=== PATIENT | male | born 1960 | race Caucasian/White ===

== ENCOUNTER → 2017-02-10 | Outpatient (CLI) | payer BC ==
[2017-02-10 08:10] LABS: Basophils % (A) 1 %; CH 31.3; CHCM 35.6; Eosinophils # (A) 0.4 k/uL (0-0.7); Eosinophils % (A) 5 %; HCT 44.8 % (39.0-53.0); HDW 2.58; HGB 15.2 gm/dL (13.0-17.5); Luc # (Auto) 0.12; Luc % (Auto) 2; Lymphocytes # (A) 1.7 k/uL (1.0-4.8); Lymphocytes % (A) 22 %; MCH 29.8 pg (25.0-35.0); MCHC 33.8 g/dL (31.0-37.0); MCV 88.1 fL (80.0-100.0); Mean Platelet Volume 6.7; Monocytes # (A) 0.4 k/uL (0-1.0); Monocytes % (A) 6 %; Neutrophils # (A) 4.9 k/uL (1.3-7.7); Neutrophils % (A) 65 %; RBC 5.09 m/uL (4.30-5.90); RDW 13.6 % (11.5-15.5); WBC 7.6 k/uL (3.8-10.6); WBC (Perox) 7.05
[2017-02-10 11:21] LABS: ALT 64 U/L (21-72); AST 36 U/L (17-59); Alkaline Phosphatase 70 U/L (38-126); Anion Gap 9 mmol/L; Blood Urea Nitrogen 20 mg/dL (9-20); Calcium 10.1 mg/dL (8.4-10.2); Carbon Dioxide 23 mmol/L (22-30); Chloride 110 mmol/L (98-107); Cholesterol 196 mg/dL (<200); Glucose 99 mg/dL (74-99); HDL Cholesterol 65 mg/dL (40-60); Non-African American GFR(MDRD) >60 (>60 ml/min/1.73 sqM); Potassium 5.8 mmol/L (3.5-5.1); Sodium 142 mmol/L (137-145); Total Bilirubin 0.4 mg/dL (0.2-1.3); Total Protein 7.2 g/dL (6.3-8.2)
[2017-02-10 11:48] LABS: Prostate Specific Antigen 0.45 ng/mL (0.00-4.00)
[2017-02-10 13:17] LABS: Hemoglobin A1C 5.5 % (4.2-6.1)
== END | disposition home or self-care (01) ==
LOC: LABWHC1 07:46
PROVIDERS: ATTEND Urology
DX: E78.5 Hyperlipidemia, unspecified (principal); R55 Syncope and collapse; E11.9 Type 2 diabetes mellitus without complications; N52.9 Male erectile dysfunction, unspecified
CPT/HCPCS: 36415; 80053; 80061; 83036; 84153; 84403; 84439; 84443; 85025

== ENCOUNTER → 2017-04-01 | Outpatient (CLI) | payer BC | END | disposition home or self-care (01) | LOC: LABWHC1 06:50 | PROVIDERS: ATTEND Urology | DX: E29.1 Testicular hypofunction (principal) | CPT/HCPCS: 36415; 84403 ==

== ENCOUNTER → 2017-05-10 | Outpatient (CLI) | payer BC | END | disposition home or self-care (01) | LOC: LABWHC1 09:11 | PROVIDERS: ATTEND Internal Medicine | DX: E87.5 Hyperkalemia (principal) | CPT/HCPCS: 36415; 84132 ==

== ENCOUNTER → 2017-08-20 | Outpatient (CLI) | payer BC ==
[2017-08-20 07:51] LABS: Basophils # (A) 0.1 k/uL (0-0.2); Basophils % (A) 1 %; Eosinophils # (A) 0.8 k/uL (0-0.7); Eosinophils % (A) 13 %; HCT 42.5 % (39.0-53.0); HGB 14.2 gm/dL (13.0-17.5); Lymphocytes # (A) 1.6 k/uL (1.0-4.8); Lymphocytes % (A) 26 %; MCH 28.6 pg (25.0-35.0); MCHC 33.3 g/dL (31.0-37.0); MCV 85.8 fL (80.0-100.0); Monocytes # (A) 0.4 k/uL (0-1.0); Monocytes % (A) 7 %; Neutrophils # (A) 3.1 k/uL (1.3-7.7); Neutrophils % (A) 52 %; Platelet Count 224 k/uL (150-450); RBC 4.96 m/uL (4.30-5.90); RDW 12.5 % (11.5-15.5)
[2017-08-20 08:04] LABS: ALT 67 U/L (21-72); AST 45 U/L (17-59); Albumin 4.2 g/dL (3.5-5.0); Alkaline Phosphatase 86 U/L (38-126); Anion Gap 11 mmol/L; Blood Urea Nitrogen 18 mg/dL (9-20); Calcium 10.3 mg/dL (8.4-10.2); Carbon Dioxide 26 mmol/L (22-30); Chloride 106 mmol/L (98-107); Cholesterol 185 mg/dL (<200); Glucose 107 mg/dL (74-99); HDL Cholesterol 62 mg/dL (40-60); LDL Cholesterol,Calculated 101 mg/dL (0-99); Potassium 5.4 mmol/L (3.5-5.1); Sodium 143 mmol/L (137-145); Total Bilirubin 0.3 mg/dL (0.2-1.3); Total Protein 6.9 g/dL (6.3-8.2); Triglycerides 111 mg/dL (<150)
[2017-08-20 11:17] LABS: Hemoglobin A1C 5.4 % (4.0-6.0)
== END | disposition home or self-care (01) ==
LOC: LABWHC1 07:08
PROVIDERS: ATTEND Internal Medicine
DX: E78.5 Hyperlipidemia, unspecified (principal); M19.90 Unspecified osteoarthritis, unspecified site; N40.0 Benign prostatic hyperplasia without lower urinary tract symptoms; K21.9 Gastro-esophageal reflux disease without esophagitis; Z79.899 Other long term (current) drug therapy
CPT/HCPCS: 36415; 80053; 80061; 83036; 85025

== ENCOUNTER 2018-01-23 22:00 | Observation (INO) | payer BC ==
[2018-01-23 22:24] LABS: Basophils % (A) 1 %; Eosinophils # (A) 0.3 k/uL (0-0.7); Eosinophils % (A) 4 %; HGB 13.3 gm/dL (13.0-17.5); Lymphocytes # (A) 1.5 k/uL (1.0-4.8); Lymphocytes % (A) 22 %; MCH 29.2 pg (25.0-35.0); MCHC 33.3 g/dL (31.0-37.0); MCV 87.5 fL (80.0-100.0); Mean Platelet Volume 6.5; Monocytes # (A) 0.4 k/uL (0-1.0); Monocytes % (A) 5 %; Neutrophils # (A) 4.7 k/uL (1.3-7.7); Neutrophils % (A) 67 %; Platelet Count 224 k/uL (150-450); RBC 4.57 m/uL (4.30-5.90); WBC 7.1 k/uL (3.8-10.6)
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
[2018-01-23 22:34] LABS: ALT 48 U/L (21-72); AST 39 U/L (17-59); Albumin 4.3 g/dL (3.5-5.0); Alkaline Phosphatase 50 U/L (38-126); Anion Gap 10 mmol/L; Blood Urea Nitrogen 12 mg/dL (9-20); Calcium 9.3 mg/dL (8.4-10.2); Carbon Dioxide 23 mmol/L (22-30); Chloride 109 mmol/L (98-107); Glucose 94 mg/dL (74-99); Magnesium 1.9 mg/dL (1.6-2.3); Potassium 3.7 mmol/L (3.5-5.1); Sodium 142 mmol/L (137-145); Total Bilirubin 0.5 mg/dL (0.2-1.3); Total Protein 6.9 g/dL (6.3-8.2)
[2018-01-23 22:44] LABS: D-Dimer 0.22 mg/L FEU (<0.60); Partial Thromboplastin Time 22.2 sec (22.0-30.0); Prothrombin Time 10.2 sec (9.0-12.0)
[2018-01-23 22:47] LABS: Creatine Kinase 256 U/L (55-170)
--- NOTE | 2018-01-23 22:48 | XR ---
EXAMINATION TYPE: XR chest 2V DATE OF EXAM: 01/23/2018 COMPARISON: 01/20/2016 HISTORY: Chest pain TECHNIQUE: Frontal and lateral views of the chest are obtained. FINDINGS: There is no heart failure nor confluent pneumonic infiltrate. Costophrenic angles are kota r. There are chest leads. Bony thorax is intact. IMPRESSION: No active cardiopulmonary disease. Normal heart. No change.
[2018-01-23 22:58] LABS: Creatine Kinase MB 2.4 ng/mL (0.0-2.4); Troponin I <0.012 ng/mL (0.000-0.034)
[2018-01-23] MEDS ORDERED: SODIUM CHLORIDE 0.9% 1,000 ML IV ONE (23:20)
[2018-01-23] MEDS ORDERED: ACETAMINOPHEN TAB 325 MG TAB PO PRN (23:58)
[2018-01-23] MEDS ORDERED: NALOXONE 0.4 MG/ML 1 ML VIAL IV PRN (23:58)
[2018-01-23] MEDS ORDERED: IBUPROFEN 400 MG TAB PO PRN (23:58)
[2018-01-24] MEDS ORDERED: NITROGLYCERIN SL TABS 0.4 MG TAB SUBLINGUAL PRN (00:02)
[2018-01-24 01:17] VITALS: BMI 31.5
[2018-01-24 05:13] LABS: Creatine Kinase 205 U/L (55-170)
[2018-01-24 05:26] LABS: Troponin I <0.012 ng/mL (0.000-0.034)
[2018-01-24 10:06] LABS: Creatine Kinase 180 U/L (55-170)
[2018-01-24 10:18] LABS: Creatine Kinase MB 1.9 ng/mL (0.0-2.4); Troponin I <0.012 ng/mL (0.000-0.034)
[2018-01-24] MEDS ORDERED: predniSONE 5 MG TAB PO PRN (11:11)
[2018-01-24] MEDS ORDERED: CELECOXIB 100 MG PO PRN (11:11)
[2018-01-24] MEDS ORDERED: HYOSCYAMINE SULFATE 0.375 MG TAB.ER.12H PO PRN (11:11)
[2018-01-24] MEDS: traMADol 50 MG TAB PO SCH ×2 (12:22→21:36)
[2018-01-24] MEDS: SODIUM CHLORIDE 0.9% 1,000 ML IV SCH (13:38)
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
[2018-01-24 14:15] LABS: Appearance,Urine Clear (Clear); Bilirubin,Urine Negative (Negative); Blood,Urine Small (Negative); Color,Urine Yellow; Glucose,Urine (UA) Negative (Negative); Ketones,Urine Negative (Negative); Leukocyte Esterase,Urine Negative (Negative); Mucus,Urine Rare /hpf; Nitrite,Urine Negative (Negative); Protein,Urine Negative (Negative); RBC,Urine 5 /hpf (0-5); Specific Gravity,Urine 1.013 (1.001-1.035); Urobilinogen,Urine <2.0 mg/dL (<2.0); WBC,Urine 3 /hpf (0-5)
[2018-01-24] MEDS: BALSALAZIDE DISODIUM 750 MG CAPSULE PO SCH ×2 (16:53→21:37)
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
[2018-01-24] MEDS ORDERED: TAMSULOSIN 0.4 MG CAP.ER.24H PO SCH (21:00)
[2018-01-24] MEDS ORDERED: ATORVASTATIN 10 MG TAB PO SCH (21:00)
[2018-01-24] MEDS ORDERED: PANTOPRAZOLE 40 MG TABLET PO SCH (21:00)
[2018-01-24] MEDS: VIT A,C & E-LUTEIN-MINERALS 1 EACH TAB PO SCH (21:36)
[2018-01-25 06:52] LABS: Basophils % (A) 1 %; Eosinophils # (A) 0.3 k/uL (0-0.7); Eosinophils % (A) 8 %; HCT 37.7 % (39.0-53.0); HGB 12.5 gm/dL (13.0-17.5); Lymphocytes # (A) 1.1 k/uL (1.0-4.8); Lymphocytes % (A) 34 %; MCH 29.4 pg (25.0-35.0); MCHC 33.2 g/dL (31.0-37.0); MCV 88.7 fL (80.0-100.0); Mean Platelet Volume 6.8; Monocytes # (A) 0.2 k/uL (0-1.0); Monocytes % (A) 5 %; Neutrophils # (A) 1.6 k/uL (1.3-7.7); Neutrophils % (A) 50 %; Platelet Count 173 k/uL (150-450); RBC 4.25 m/uL (4.30-5.90); RDW 12.9 % (11.5-15.5); WBC 3.1 k/uL (3.8-10.6)
[2018-01-25 07:00] LABS: ALT 39 U/L (21-72); AST 24 U/L (17-59); Albumin 3.3 g/dL (3.5-5.0); Alkaline Phosphatase 48 U/L (38-126); Anion Gap 1 mmol/L; Blood Urea Nitrogen 11 mg/dL (9-20); Calcium 8.8 mg/dL (8.4-10.2); Carbon Dioxide 28 mmol/L (22-30); Chloride 111 mmol/L (98-107); Cholesterol 142 mg/dL (<200); Glucose 99 mg/dL (74-99); HDL Cholesterol 52 mg/dL (40-60); LDL Cholesterol,Calculated 68 mg/dL (0-99); Potassium 4.7 mmol/L (3.5-5.1); Sodium 140 mmol/L (137-145); Total Bilirubin 0.6 mg/dL (0.2-1.3); Total Protein 5.7 g/dL (6.3-8.2); Triglycerides 109 mg/dL (<150)
[2018-01-25] MEDS: SODIUM CHLORIDE 0.9% 1,000 ML IV SCH ×3 (07:44→10:07)
[2018-01-25 08:08] VITALS: RESP 18
[2018-01-25] MEDS ORDERED: MELOXICAM 7.5 MG TAB PO SCH (09:00)
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
[2018-01-25] MEDS: BALSALAZIDE DISODIUM 750 MG CAPSULE PO SCH (10:30)
[2018-01-25] MEDS: ASPIRIN 325 MG TAB PO SCH ×2 (10:30→10:34)
[2018-01-25] MEDS: traMADol 50 MG TAB PO SCH (10:31)
[2018-01-25] MEDS: VIT A,C & E-LUTEIN-MINERALS 1 EACH TAB PO SCH (10:31)
--- NOTE | 2018-01-25 11:09 | ECHOS ---
STRESS ECHOCARDIOGRAM DATE OF SERVICE: 01/25/2018 INDICATIONS: Chest pain. MEDICATIONS: BASELINE HEART RATE: 70 BASELINE BLOOD PRESSURE: 135/82 MAXIMUM HEART RATE: 158 MAXIMUM BLOOD PRESSURE: 158/69 85% MPHR: 138 100% MPHR: 162 METS: 8.5 MAXIMUM STAGE REACHED: II TOTAL EXERCISE TIME: 7 minutes CLINICAL INFORMATION: Patient was exercised for a total period of 7 minutes. Peak heart rate of 158 was achieved. Maximum blood pressure of 158/69 mmHg was noted. Resting EKG shows normal sinus rhythm with normal IN interval and QRS duration and normal ST-T waves. No ST- segment depression suggestive of ischemia is noted. The baseline echocardiographic images reveal normal left ventricular chamber size with normal left ventricular systolic function. In the immediate post exercise period, normal increase in the wall thickness and contractility is noted. FINAL IMPRESSION: This stress echocardiographic study is negative for stress-induced ischemia. EKG portion of the stress test is not suggestive of ischemia. MMODL / IJN: [id number] /
[2018-01-25 11:36] VITALS: BP 119/77; PULSE 74; TEMP 98.2
[2018-01-25] MEDS ORDERED: MULTIVITAMINS, THERA 1 EACH TAB PO SCH (12:00)
[2018-01-25] MEDS ORDERED: VIT A,C & E-LUTEIN-MINERALS 1 EACH TAB PO SCH (12:00)
[2018-01-25] MEDS ORDERED: CALCIUM CARBONATE 500 MG CHEWABLE PO SCH (12:00)
--- NOTE | 2018-01-25 16:48 | DS ---
DISCHARGE SUMMARY DATE OF SERVICE: 01/25/2018. FINAL DIAGNOSES: 1. Lightheaded and syncope possibly orthostatic hypotension or vasovagal syncope. 2. Myocardial infarction ruled out with negative stress echo. 3. Increased creatine kinase. 4. History of gastroesophageal reflux disease. 5. Hyperlipidemia. 6. History of degenerative joint disease. 7. History of Crohn's disease. 8. History of nicotine dependence. 9. Family history of coronary artery disease. DISCHARGE DISPOSITION: The patient is being discharged in stable condition with guarded prognosis. HISTORY OF PRESENT ILLNESS: This 57-year-old gentleman with a past medical history of multiple medical problems was admitted with lightheadedness, syncope. The possibility of orthostatic hypotension and vasovagal syncope was considered. Cardiology saw the patient. Myocardial infarction ruled out. Dr. Ledesma saw the patient. The patient had a stress echo which is normal and recommended the patient to check blood pressure twice daily and bring the log to Dr. Ledesma's office for evaluation. Otherwise, the patient had normal cholesterol levels. PHYSICAL EXAMINATION: On exam, vitals are stable. CARDIOVASCULAR: S1, S2. ABDOMEN: Soft. NERVOUS SYSTEM: No focal deficits. White count is 3.1, hemoglobin 12.5, recommend close outpatient follow up with Dr. Ledesma. I also recommend the patient follow up with Cardiology in case the symptoms recur. The patient might need long-term loop recording monitoring to rule out cardiac arrhythmia. DISCHARGE ADVICE AND MEDICATIONS: 1. Diet is cardiac. 2. Activity limited until followup. 3. Follow up with Dr. Ledesma in 1-2 days. 4. Follow with Cardiology as recommended. MEDICATION: 1. Calcium 1200 mg daily. 2. Celebrex 200 mg daily. 3. Asacol 800 mg t.i.d. 4. Multivitamins 1 p.o. daily. 5. Prilosec 20 mg q.h.s. 6. Zocor 20 mg q.h.s. 7. Flomax 0.4 q.h.s. 8. Ultram 50 mg b.i.d. 9. Vitamin C, zinc 1 p.o. b.i.d. 10.Prednisone as before. MMODL / IJN: [id number] /
--- NOTE | 2018-01-31 16:19 | ECHOF ---
Referral Reason:Chest Pain MEASUREMENTS -------- HEIGHT: 177.8 cm WEIGHT: 93.9 kg BP: 132/82 RVIDd: 3.0 cm (< 3.3) IVSd: 1.2 cm (0.6 - 1.1) LVIDd: 4.2 cm (3.9 - 5.3) LVPWd: 1.2 cm (0.6 - 1.1) IVSs: 1.5 cm LVIDs: 3.3 cm LVPWs: 1.4 cm LAESV Index (A-L): 35.06 ml/m Ao Diam: 3.9 cm (2.0 - 3.7) AV Cusp: 2.2 cm (1.5 - 2.6) LA Diam: 3.7 cm (2.7 - 3.8) MV E Akhil: 0.81 m/s MV DecT: 223 ms MV A Akhil: 0.61 m/s MV E/A Ratio: 1.33 RAP: 5.00 mmHg RVSP: 26.95 mmHg FINDINGS -------- Sinus rhythm. This was a technically good study. The left ventricular size is normal. Left ventricular wall thickness is normal. Overall left vent ricular systolic function is normal with, an EF between 55 - 60 %. The right ventricle is normal in size and function. Normal LA size by volume 22+/-6 ml/m2. The right atrium is normal in size. Aortic valve is trileaflet and is mildly thickened. There is no evidence of aortic regurgitation. There is no evidence of aortic stenosis. The mitral valve leaflets are mildly thickened. There is trace to mild mitral regurgitation. Mild tricuspid regurgitation present. Right ventricular systolic pressure is normal at < 35 mmHg. There is no evidence of pulmonary hypertension. The pulmonic valve was not well visualized. The aortic root size is normal. Normal inferior vena cava with normal inspiratory collapse consistent with estimated right atrial pre ssure of 5 mmHg. There is no pericardial effusion. CONCLUSIONS -------- 1. Sinus rhythm. 2. This was a technically good study. 3. The left ventricular size is normal. 4. Left ventricular wall thickness is normal. 5. Overall left ventricular systolic function is normal with, an EF between 55 - 60 %. 6. Normal LA size by volume 22+/-6 ml/m2. 7. Aortic valve is trileaflet and is mildly thickened. 8. The mitral valve leaflets are mildly thickened. 9. There is trace to mild mitral regurgitation. 10. Mild tricuspid regurgitation present. 11. Right ventricular systolic pressure is normal at < 35 mmHg. 12. There is no evidence of pulmonary hypertension. 13. The pulmonic valve was not well visualized. 14. The aortic root size is normal. 15. There is no pericardial effusion. HEALTH AND SAFETY SPECIALIST: Nitin Mcconnell RDCS
== END 2018-01-25 15:00 | disposition home or self-care (01) ==
LOC: EC 22:00 → 3OBS 01-24 00:03
PROVIDERS: ADMIT Hospitalist; ATTEND Hospitalist
DX: R55 Syncope and collapse (principal); I20.8 Other forms of angina pectoris; E78.00 Pure hypercholesterolemia, unspecified; G89.29 Other chronic pain; M54.9 Dorsalgia, unspecified; E78.5 Hyperlipidemia, unspecified; K50.90 Crohn's disease, unspecified, without complications; I10 Essential (primary) hypertension; K21.9 Gastro-esophageal reflux disease without esophagitis; F17.200 Nicotine dependence, unspecified, uncomplicated; M19.90 Unspecified osteoarthritis, unspecified site; Z80.42 Family history of malignant neoplasm of prostate; Z82.49 Family history of ischemic heart disease and other diseases of the circulatory system
CPT/HCPCS: 96360; 96361; 99285; 36415; 93005; 93306; 93351; 85379; 80061; 80053 ×2; 82550 ×2; 82553 ×2; 83735; 84484 ×2; 85025 ×2; 85610; 85730; 81001; 71046; G0378 ×2

== ENCOUNTER → 2018-02-14 | Outpatient (CLI) | payer BC ==
[2018-02-14 11:25] LABS: Basophils % (A) 1 %; Eosinophils # (A) 0.3 k/uL (0-0.7); Eosinophils % (A) 5 %; HCT 40.1 % (39.0-53.0); HGB 13.6 gm/dL (13.0-17.5); Lymphocytes # (A) 1.3 k/uL (1.0-4.8); Lymphocytes % (A) 28 %; MCV 88.1 fL (80.0-100.0); Mean Platelet Volume 6.7; Monocytes # (A) 0.3 k/uL (0-1.0); Monocytes % (A) 6 %; Neutrophils # (A) 2.8 k/uL (1.3-7.7); Neutrophils % (A) 59 %; Platelet Count 232 k/uL (150-450); RBC 4.55 m/uL (4.30-5.90); RDW 12.8 % (11.5-15.5); WBC 4.8 k/uL (3.8-10.6)
[2018-02-14 11:57] LABS: Anion Gap 6 mmol/L; Blood Urea Nitrogen 11 mg/dL (9-20); Calcium 9.4 mg/dL (8.4-10.2); Carbon Dioxide 26 mmol/L (22-30); Chloride 108 mmol/L (98-107); Glucose 97 mg/dL (74-99); Potassium 4.2 mmol/L (3.5-5.1); Sodium 140 mmol/L (137-145)
== END | disposition home or self-care (01) ==
LOC: LABWHC1 10:25
PROVIDERS: ATTEND Hospitalist
DX: D72.819 Decreased white blood cell count, unspecified (principal)
CPT/HCPCS: 36415; 80048; 85025

== ENCOUNTER → 2019-03-08 | Outpatient (CLI) | payer BC ==
[2019-03-08 09:21] LABS: Basophils % (A) 1 %; Eosinophils # (A) 0.4 k/uL (0-0.7); Eosinophils % (A) 5 %; HCT 43.8 % (39.0-53.0); HGB 14.8 gm/dL (13.0-17.5); Lymphocytes # (A) 1.3 k/uL (1.0-4.8); Lymphocytes % (A) 17 %; MCH 30.1 pg (25.0-35.0); MCHC 33.9 g/dL (31.0-37.0); MCV 88.9 fL (80.0-100.0); Mean Platelet Volume 5.7; Monocytes # (A) 0.4 k/uL (0-1.0); Monocytes % (A) 5 %; Neutrophils # (A) 5.6 k/uL (1.3-7.7); Neutrophils % (A) 71 %; Platelet Count 258 k/uL (150-450); RBC 4.93 m/uL (4.30-5.90); RDW 12.3 % (11.5-15.5)
[2019-03-08 16:13] LABS: Albumin 4.8 g/dL (3.80-4.90); Albumin/Globulin Ratio 2.29 (1.60-3.17); Anion Gap 5.8 mmol/L (4.00-12.00); BUN/Creat Ratio 17.78 Ratio (12.00-20.00); Calcium 10.4 mg/dL (8.7-10.3); Carbon Dioxide 30.2 mmol/L (21.6-31.8); Chol/HDL Ratio 3.32; Globulin 2.1 g/dL (1.6-3.3); LDL Cholesterol,Calculated 119.6 mg/dL (0.0-131.0); Potassium 5.1 mmol/L (3.5-5.5); Total Bilirubin 0.6 mg/dL (0.3-1.2); Total Protein 6.9 g/dL (6.2-8.2); VLDL Calculation 33.4 mg/dL (5.00-40.00)
[2019-03-08 16:21] LABS: T4, Free (Free Thyroxine) 1.2 ng/dL (0.80-1.80)
== END | disposition home or self-care (01) ==
LOC: LABWHC1 08:42
PROVIDERS: ATTEND Internal Medicine
DX: Z00.00 Encounter for general adult medical examination without abnormal findings (principal)
CPT/HCPCS: 36415; 80053; 80061; 84439; 84443; 85025

== ENCOUNTER → 2019-05-11 | Outpatient (CLI) | payer BC ==
--- NOTE | 2019-05-11 10:33 | MR ---
EXAMINATION TYPE: MR knee LT wo con DATE OF EXAM: 05/11/2019 COMPARISON: Plain film dated 04/28/2019 HISTORY: Lt knee pain/swelling x 6 mos, no trauma TECHNIQUE: Multiplanar, multisequence imaging of the left knee is performed without IV contrast. FINDINGS: MEDIAL MENISCUS: Posterior horn of the medial meniscus shows stellate abnormal signal extends the art icular surface, the posterior horn is attenuated, tear extends into the body. There are T2 bright hyp erintensities with septation noted immediately adjacent to the posterior horn of the medial meniscus with a small ossific fragment also noted as on plain brown measuring 1 cm, findings likely represent meniscal cyst. Posterior root anchor is attenuated. LATERAL MENISCUS: Anterior and posterior horns are intact without tear. CRUCIATE LIGAMENTS: Fibers of the anterior cruciate ligament are intact, there is increased signal as sociated with the ligament possibly due to strain or partial tear, posterior cruciate ligament is int act COLLATERAL LIGAMENTS: The medial collateral ligament and lateral collateral ligament complex are inta ct and unremarkable. EXTENSOR MECHANISM: Visualized quadriceps and patellar tendons are intact. EFFUSION: Suprapatellar joint effusion is present POPLITEAL CYST: No popliteal/mishra cyst. TRICOMPARTMENT SPACES: Joint space loss present in the medial compartment CARTILAGE: Grade 3 to grade IV chondromalacia in the medial compartment BONE MARROW SIGNAL: There are lobular T2 bright foci within the proximal tibia at the intercondylar n otch region possibly representing ganglion cysts. Some reactive marrow signal changes are suspected i n the proximal tibia OTHER: Subcutaneous edema is present. IMPRESSION: Complex tear of the posterior horn the medial meniscus may be degenerative, there are osteoarthritic changes. Joint effusion. Additional findings above.
== END | disposition home or self-care (01) ==
LOC: RADMRIMAIN 08:40
PROVIDERS: ATTEND Orthopaedic Surgery
DX: S83.232A Complex tear of medial meniscus, current injury, left knee, initial encounter (principal); M94.262 Chondromalacia, left knee; M25.862 Other specified joint disorders, left knee

== ENCOUNTER → 2019-06-23 | Outpatient (CLI) | payer BC ==
[2019-06-23 10:07] LABS: Basophils # (A) 0.1 k/uL (0-0.2); Basophils % (A) 1 %; Eosinophils # (A) 0.4 k/uL (0-0.7); Eosinophils % (A) 7 %; HCT 42.6 % (39.0-53.0); Lymphocytes # (A) 1.5 k/uL (1.0-4.8); Lymphocytes % (A) 27 %; MCH 29.4 pg (25.0-35.0); MCHC 32.8 g/dL (31.0-37.0); MCV 89.6 fL (80.0-100.0); Mean Platelet Volume 7.1; Monocytes # (A) 0.4 k/uL (0-1.0); Monocytes % (A) 6 %; Neutrophils # (A) 3.2 k/uL (1.3-7.7); Neutrophils % (A) 56 %; Platelet Count 218 k/uL (150-450); RBC 4.75 m/uL (4.30-5.90); RDW 12.3 % (11.5-15.5); WBC 5.7 k/uL (3.8-10.6)
[2019-06-23 10:09] LABS: Potassium 5.3 mmol/L (3.5-5.1)
== END | disposition home or self-care (01) ==
LOC: LABPAT 09:08
PROVIDERS: ATTEND Orthopaedic Surgery
DX: Z01.818 Encounter for other preprocedural examination (principal); Z01.812 Encounter for preprocedural laboratory examination; M23.92 Unspecified internal derangement of left knee
CPT/HCPCS: 36415; 80051; 85025; 93005

== ENCOUNTER 2019-07-06 07:34 | Day surgery (SDC) | payer BC ==
[2019-07-04 11:03] VITALS: BMI 32.5
--- NOTE | 2019-07-05 14:09 | HP ---
HISTORY AND PHYSICAL DATE OF SURGERY: 07/06/2019. Roc Bird is a 59-year-old gentleman seen with progressive left knee pain. We discussed options for treatment. He elected to proceed with arthroscopy. Consent regarding the procedure was obtained. PAST MEDICAL HISTORY: Hypertension, hyperlipidemia, gastroesophageal reflux disease. PAST SURGICAL HISTORY: Appendectomy and vasectomy. MEDICATIONS: Flomax, omeprazole, simvastatin, Celebrex. ALLERGIES: None. SOCIAL HISTORY: He smokes occasional cigars. PHYSICAL EVALUATION OF THE LEFT KNEE: His range of motion is -3/4-120. Moderate effusion. Tenderness medial joint line. Positive medial Nava's. Ligaments stable. Hip rotation without pain. Distal neurovascular exam is intact. RADIOGRAPHS: Radiographs of the left knee revealed moderate medial compartment osteoarthritis. MRI of the left knee revealed medial meniscal tear, osteoarthritis and joint effusion. IMPRESSION: 1. Internal derangement, left knee with medial meniscal tear. 2. Left knee osteoarthritis. 3. Hypertension. 4. Hyperlipidemia. PLAN: Left knee arthroscopy with partial meniscectomy, partial synovectomy and debridement. MMODL / IJN: [id number] /
[~2019-07-06 07:34] MED LIST: DEXAMETHASONE SOD PHOSPHATE 10 MG/ML 1 ML VIAL IV ONE; LACTATED RINGERS 1,000 ML IV SCH; LIDOCAINE 1% 20 ML VIAL (10MG/ML) FOR IV START INTRADERMA PRN; MIDAZOLAM 2 MG/2 ML VIAL IV PRN; ONDANSETRON 4 MG/2 ML VIAL IVP ONE; fentaNYL (PF) 50 MCG/ML 2 ML AMP IV PRN
[2019-07-06 08:12] VITALS: TEMP 98
[2019-07-06] MEDS ORDERED: PROPOFOL 10 MG/ML 20 ML VIAL IV ONE (09:34)
[2019-07-06] MEDS ORDERED: fentaNYL (PF) 50 MCG/ML 2 ML AMP ONE (09:34)
[2019-07-06] MEDS ORDERED: LIDOCAINE 1% INJ 10MG/ML (20 ML MDV) ONE (09:34)
[2019-07-06] MEDS ORDERED: MIDAZOLAM 2 MG/2 ML VIAL ONE (09:34)
[2019-07-06] MEDS ORDERED: BUPIVACAINE (PF) 0.25% 30 ML VIAL SQ ONE (09:41)
--- NOTE | 2019-07-06 10:27 | P.OP ---
Date of Procedure: 07/06/19 Preoperative Diagnosis: Internal derangement left knee Postoperative Diagnosis: 1. Tear medial meniscus left knee 2. 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 Grade 3/4 chondromalacia medial tibial plateau left knee 4. Reactive synovitis medial, lateral and suprapatellar compartments left knee Procedure(s) Performed: 1. Arthroscopic partial medial meniscectomy left knee 2. Arthroscopic chondroplasty medial femoral condyle left knee 3. Arthroscopic microfracture medial tibial plateau left knee 4. Arthroscopic partial synovectomy medial, lateral and suprapatellar compartments left knee Anesthesia: TRAVONA, local Surgeon: José Luis Saucedo Estimated Blood Loss (ml): 10 Pathology: none sent Condition: stable Disposition: PACU Indications for Procedure: 59-year-old patient seen with progressive left knee pain. After treatment options were discussed, he elected to proceed with arthroscopy. Operative Findings: see description of procedure Description of Procedure: Patient was taken to the operative suite. Patient underwent a general anesthetic by the department of anesthesia. Patient was given preoperative antibiotics. The left lower extremity was placed in a well-padded arthroscopic leg lcaros. The left leg was prepped and draped in the normal sterile orthopedic fashion. A lateral parapatellar and suprapatellar incision was made. Trochars were inserted. Arthroscopy was initiated. Suprapatellar pouch revealed diffuse thick reactive synovitis. The patellofemoral joint appeared to articulate congruently. There was grade 1/2 chondromalacia of the patellofemoral joint, no osteochondral tears were present.. The scope was guided into the medial gutter. No loose bodies or plica were identified. The scope was then guided into the medial compartment. A medial parapatellar incision was made. Trocar inserted followed by probe. There was a complex tear involving the midbody and posterior horn medial meniscus. There were grade 3 chondral moist changes the medial femoral condyle with some osteochondral flap tears present. There was grade 3/4 chondromalacia of the tibial plateau as well as an area medially of exposed bone measuring 1 cm diameter. There was thick reactive synovitis anteriorly. I performed a partial medial meniscectomy. I performed a chondroplasty of the medial femoral condyle. I performed a partial synovectomy decompressing the reactive synovitis. I performed a microfracture to that exposed bone medial tibial plateau. I utilized a microfracture awl penetrated the bone with resultant bleeding at the microfracture site. The residual meniscus was stable. The residual osteochondral surfaces remain stable. He was good decompression with synovitis. Scope and probe were then guided into the intercondylar notch. Cruciates were identified, probed and found to be stable. The scope and probe were then guided into lateral compartment. Lateral meniscus was probed and found to be stable. There was some grade 1 chondromalacia changes lateral compartment. There was thick reactive synovitis anteriorly. A motorize shaver was introduced and partial synovectomy was performed. There was good decompression with synovitis. The scope was in guided back into the suprapatellar compartment. I introduced a motorized shaver into the super patellar compartment. I debrided some piecemeal fragments of meniscus I encountered. I performed a partial synovectomy decompressing reactive synovitis. Shaver was removed. I took one more look on the entire knee, no residual debris. Instruments were now removed from the joint. The joint was infiltrated with .25% Marcaine. Steri-Strips were applied to the portal sites. Sterile dressings were applied. The patient was placed into a NATACHA hose. No tourniquet was utilized. The patient was awakened, transferred to a bed and taken to recovery stable satisfactory condition.
[2019-07-06] MEDS: HYDROmorphone 0.5 MG/0.5 ML SYRINGE IVP PRN ×2 (10:30→10:50)
[2019-07-06 11:19] VITALS: RESP 16
[2019-07-06] MEDS ORDERED: HYDROcodone/APAP 7.5-325MG 1 EACH TAB PO ONE (11:57)
[2019-07-06 12:40] VITALS: BP 124/74; PULSE 77
== END 2019-07-06 12:40 | disposition home or self-care (01) ==
LOC: OR 07:34
PROVIDERS: ATTEND Orthopaedic Surgery
DX: S83.282A Other tear of lateral meniscus, current injury, left knee, initial encounter (principal); X58.XXXA Exposure to other specified factors, initial encounter; M94.262 Chondromalacia, left knee; M65.862 Other synovitis and tenosynovitis, left lower leg; I10 Essential (primary) hypertension; E78.5 Hyperlipidemia, unspecified; K21.9 Gastro-esophageal reflux disease without esophagitis; Z79.1 Long term (current) use of non-steroidal anti-inflammatories (NSAID); Z79.899 Other long term (current) drug therapy; F17.290 Nicotine dependence, other tobacco product, uncomplicated; M17.12 Unilateral primary osteoarthritis, left knee; R55 Syncope and collapse; K51.90 Ulcerative colitis, unspecified, without complications; K50.90 Crohn's disease, unspecified, without complications; Z79.891 Long term (current) use of opiate analgesic; Z79.52 Long term (current) use of systemic steroids
CPT/HCPCS: 84132; 29881; 29879; 29876; J2250; J1100; J0690; J2405; J2001; J3010; J2704; J1170

== ENCOUNTER 2019-12-01 10:26 | Observation (INO) | payer BC ==
[2019-12-01] MEDS ORDERED: ASPIRIN 81 MG PO STA (10:42)
[2019-12-01] MEDS ORDERED: NITROGLYCERIN SL TABS 0.4 MG TAB SUBLINGUAL STA (10:42)
[2019-12-01] MEDS ORDERED: SODIUM CHLORIDE 0.9% 1,000 ML IV STA (10:42)
[2019-12-01] MEDS ORDERED: SODIUM CHLORIDE 0.9% 1,000 ML IV ONE (10:43)
--- NOTE | 2019-12-01 10:56 | ED ---
Chest Pain HPI - General Chief Complaint: Chest Pain Stated Complaint: chest pain Time Seen by Provider: 12/01/19 10:32 Source: patient, RN notes reviewed, old records reviewed Mode of arrival: wheelchair Limitations: no limitations - History of Present Illness Initial Comments: 5-year-old male with history of hypertension hyperlipidemia presents emergency department today with onset of chest pain starting last night. He reports it persisted throughout the night and now reports a 1 out of 10 dull achy discomfort in the chest. Denies any previous cardiac history. He does report he had a stress test he thinks about 2 years ago. His economic forecaster is Dr. Cantu. Patient reports that he has had some chest pain with exertion while mowing the lawn over the past couple of weeks. He reports he's been under stress with caring for his own father and has been diminishing his symptoms. He reports it seemed to be worse yesterday caring through the evening. He denies any significant nausea or GERD-like symptoms with this. - Related Data Home Medications Medication Instructions Recorded Confirmed Mesalamine [Asacol Hd] 800 mg PO BID 01/15/14 12/01/19 Omeprazole [PriLOSEC] 20 mg PO BID 01/15/14 12/01/19 Tamsulosin HCl [Flomax] 0.4 mg PO HS 01/15/14 12/01/19 Multivitamins, Thera [Multivitamin 1 tab PO DAILY 02/05/16 12/01/19 (formulary)] Calcium Carbonate [Calcium] 600 mg PO DAILY 01/23/18 12/01/19 Celecoxib [CeleBREX] 200 mg PO DAILY 01/23/18 12/01/19 traMADol HCL [Ultram] 50 mg PO BID 01/23/18 12/01/19 Vit C/E/Zn/Coppr/Lutein/Zeaxan 1 cap PO BID 01/24/18 12/01/19 [Preservision Areds 2 Softgel] Losartan [Cozaar] 25 mg PO DAILY 07/04/19 12/01/19 Hyoscyamine Sulfate [Levbid] 0.375 mg PO BID PRN 12/01/19 12/01/19 Hyoscyamine Sulfate [Levbid] 0.375 mg PO HS 12/01/19 12/01/19 Simvastatin [Zocor] 40 mg PO HS 12/01/19 12/01/19 Tamsulosin [Flomax] 0.4 mg PO HS 12/01/19 12/01/19 Testosterone [Androgel 1.62% Gel 4 pump TOPICAL DAILY 12/01/19 12/01/19 Pump] Allergies Allergy/AdvReac Type Severity Reaction Status Date / Time No Known Allergies Allergy Verified 12/01/19 11:35 Review of Systems ROS Statement: Those systems with pertinent positive or pertinent negative responses have been documented in the HPI. ROS Other: All systems not noted in ROS Statement are negative. EKG Findings - EKG Comments: EKG Findings:: EKG performed at 10:45 AM shows normal sinus rhythm nonspecific ST abnormality. Abnormal EKG. Ventricular rate of 81 bpm. Verbal 148 ms. QRS duration is 90 ms. QT QTc is 360/418 ms. Past Medical History Past Medical History: GERD/Reflux, Hyperlipidemia, Osteoarthritis (OA) Additional Past Medical History / Comment(s): Crohn's disease, seasonal allergies History of Any Multi-Drug Resistant Organisms: None Reported Past Surgical History: Orthopedic Surgery Additional Past Surgical History / Comment(s): fatty tumor removed from left chest, colonoscopy, right plantar fascitis surg., right knee arthroscopy (01/2016), right rotator cuff. Past Anesthesia/Blood Transfusion Reactions: No Reported Reaction Past Psychological History: No Psychological Hx Reported Smoking Status: Current some day smoker Past Alcohol Use History: Occasional Past Drug Use History: None Reported - Past Family History Father Family Medical History: Cancer Mother Family Medical History: Memory Impairment Additional Family Medical History / Comment(s): alzheimers General Exam - General Exam Comments Initial Comments: 5-year-old male. Alert and oriented 3. No significant distress. Limitations: no limitations General appearance: alert, in no apparent distress Head exam: Present: atraumatic, normocephalic, normal inspection Eye exam: Present: normal appearance, PERRL, EOMI. Absent: scleral icterus, conjunctival injection, periorbital swelling ENT exam: Present: normal exam, mucous membranes moist Neck exam: Present: normal inspection. Absent: tenderness, meningismus, lymphadenopathy Respiratory exam: Present: normal lung sounds bilaterally. Absent: respiratory distress, wheezes, rales, rhonchi, stridor Cardiovascular Exam: Present: regular rate, normal rhythm, normal heart sounds. Absent: systolic murmur, diastolic murmur, rubs, gallop, clicks GI/Abdominal exam: Present: soft, normal bowel sounds. Absent: distended, tenderness, guarding, rebound, rigid Extremities exam: Present: normal inspection, full ROM, normal capillary refill. Absent: tenderness, pedal edema, joint swelling, calf tenderness Back exam: Present: normal inspection Neurological exam: Present: alert, oriented X3, CN II-XII intact Psychiatric exam: Present: normal affect, normal mood Skin exam: Present: warm, dry, intact, normal color. 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 He also complained has had some episodes of chest discomfort with exertion the past few weeks. At this time patient's EKG was reviewed and negative for acute process. Troponin is negative. Denies any cough or significant shortness of breath. I discussed with concern for risk factors of hypertension and family history and hyperlipidemia to admit the Pat ient for further testing at this time. The case with Dr. Washington discussed the case with the [facility] hospitalist with consult to cardiology. Disposition Clinical Impression: Anginal equivalent, Chest pain Disposition: ADMITTED IP TO THIS [facility] Condition: Stable Is patient prescribed a controlled substance at d/c from ED?: No Referrals: Vasile Ledesma MD [Primary Care Provider] - 1-2 days Time of Disposition: 13:18
[2019-12-01 11:04] LABS: Basophils # (A) 0.1 k/uL (0-0.2); Basophils % (A) 1 %; Eosinophils # (A) 0.3 k/uL (0-0.7); Eosinophils % (A) 5 %; HCT 42.4 % (39.0-53.0); HGB 14.3 gm/dL (13.0-17.5); Lymphocytes # (A) 1.3 k/uL (1.0-4.8); Lymphocytes % (A) 19 %; MCH 29.3 pg (25.0-35.0); MCHC 33.6 g/dL (31.0-37.0); MCV 87.1 fL (80.0-100.0); Mean Platelet Volume 6.9; Monocytes # (A) 0.3 k/uL (0-1.0); Monocytes % (A) 5 %; Neutrophils # (A) 4.4 k/uL (1.3-7.7); Neutrophils % (A) 69 %; Platelet Count 226 k/uL (150-450); RBC 4.87 m/uL (4.30-5.90); RDW 12.5 % (11.5-15.5); WBC 6.4 k/uL (3.8-10.6)
[2019-12-01 11:13] LABS: INR 0.9 (<1.2); Partial Thromboplastin Time 23.8 sec (22.0-30.0); Prothrombin Time 9.7 sec (9.0-12.0)
[2019-12-01 11:20] LABS: ALT 59 U/L (4-49); AST 39 U/L (17-59); African American GFR (CKD) >90 (>60 ml/min/1.73 sqM); Albumin 4.6 g/dL (3.5-5.0); Alkaline Phosphatase 87 U/L (38-126); Anion Gap 8 mmol/L; Blood Urea Nitrogen 11 mg/dL (9-20); Calcium 9.9 mg/dL (8.4-10.2); Carbon Dioxide 25 mmol/L (22-30); Chloride 105 mmol/L (98-107); Glucose 112 mg/dL (74-99); Magnesium 1.7 mg/dL (1.6-2.3); Non-African American GFR(CKD) >90 (>60 ml/min/1.73 sqM); Potassium 4.2 mmol/L (3.5-5.1); Sodium 138 mmol/L (137-145); Total Bilirubin 0.7 mg/dL (0.2-1.3); Total Protein 7.1 g/dL (6.3-8.2)
--- NOTE | 2019-12-01 12:00 | XR ---
EXAMINATION TYPE: XR chest 2V DATE OF EXAM: 12/01/2019 COMPARISON: January 23, 2018 HISTORY: Shortness of breath TECHNIQUE: Frontal and lateral views of the chest are obtained. FINDINGS: Scattered senescent parenchymal changes noted. Hyperinflation compatible with COPD. No evidence for infiltrate. No evidence for atelectasis. Heart size is stable. Mediastinal structures are stable and grossly unremarkable. No evidence for hilar prominence. Degenerative changes dorsal spine. IMPRESSION: 1. No evidence for acute pulmonary disease.
[2019-12-01] MEDS ORDERED: NITROGLYCERIN SL TABS 0.4 MG TAB SUBLINGUAL PRN (13:19)
[2019-12-01] MEDS ORDERED: HEPARIN SODIUM,PORCINE 5,000 UNIT/ML 1 ML VIAL IV ONE (13:19)
[2019-12-01] MEDS ORDERED: HEPARIN SOD,PORK IN 0.45% NACL 25,000 UNIT in 0.45% NACL 1 250ML.BAG IV SCH (13:30)
[2019-12-01] MEDS: SODIUM CHLORIDE 0.9% 1,000 ML IV SCH ×2 (14:01→22:31)
--- NOTE | 2019-12-01 14:36 | P.CRDCN ---
History of Present Illness History of present illness: HISTORY OF PRESENTING ILLNESS This is a pleasant 59-year-old male past medical history significant for hypertension, dyslipidemia, Crohn's disease and gastroesophageal reflux disease. He follows in the office with Dr. Cantu. We have been asked to see in consultation for chest pain. He states last night he started developing a tightness in the midsternal region. There is no radiation through to the back, down the arm, into the neck or the jaw. Initially he felt the discomfort may be related to reflux disease however he did have a sensation that this pain was different than he has ever experienced in the past. He currently takes omeprazole twice a day regularly and states he has not missed a dose. He went to sleep last night with ongoing chest discomfort. He woke up this morning and the tightness had subsided. However after beginning to get ready for his day mo ving around the tightness returned. It was associated with a very mild shortness of breath and feeling of lightheadedness. He states he felt like he was mildly confused or "out of sorts" for 30 minutes. He is seen and examined sitting up on the stretcher in the emergency department in no acute distress since arriving at the hospital his chest discomfort has subsided. He underwent a stress echocardiogram in 2018 that was negative for stress-induced ischemia. Echocardiogram at that time revealed preserved LV systolic function with ejection fraction 55-60% with mild tricuspid regurgitation noted. EKG obtained on admission revealed sinus mechanism heart rate of 81 bpm with T-wave flattenin g in the inferior leads. Laboratory data reviewed, CBC unremarkable, sodium 138, potassium 4.2, creatinine 0.65, cardiac enzymes negative 1. Current daily cardiac medications include losartan 25 mg daily and simvastatin 40 mg at bedtime. REVIEW OF SYSTEMS At the time of my exam: CONSTITUTIONAL: Denies fever or chills. CARDIOVASCULAR: Denies chest pain, shortness of breath, orthopnea, PND or p alpitations. RESPIRATORY: Denies cough. GASTROINTESTINAL: Denies abdominal pain, diarrhea, constipation, nausea or vomiting. MUSCULOSKELETAL: Denies myalgias. NEUROLOGIC: Denies numbness, tingling or weakness. ENDOCRINE: Denies fatigue, weight change, polydipsia or polyurina. GENITOURINARY: Denies burning, hematuria or urgency with micturation. HEMATOLOGIC: Denies history of anemia or bleeding. PHYSICAL EXAMINATION Blood pressure 120/79 heart rate 87 afebrile and maintaining oxygen saturation on room air. CONSTITUTIONAL: No apparent distress. HEENT: Head is normocephalic. Pupils are equal, round. Sclerae anicteric. Mucous membranes of the mouth are moist. No JVD. No carotid bruit. CHEST EXAMINATION: Lungs are clear to auscultation. No chest wall tenderness is noted on palpation or with deep breathing. HEART EXAMINATION: Regular rate and rhythm. S1, S2 heard. No murmurs, gallops or rub. ABDOMEN: Soft, nontender. Positive bowel sounds. EXTREMITIES: 2+ peripheral pulses, no lower extremity edema and no calf tenderness. NEUROLOGIC EXAMINATION: Patient is awake, alert and oriented x3. ASSESSMENT Precordial chest pain Hypertension Dyslipidemia Gastroesophageal reflux disease Obesity, BMI 32 PLAN Continue to obtain serial cardiac enzymes to rule out an acute coronary event. Obtain 2-D echocardiogram and Doppler study to assess cardiac structure and function. Decrease aspirin to 81 mg daiy. Continue losratan and simvastatin as previously ordered. Thank you kindly for this consultation. Nurse Practitioner note has been reviewed, I agree with a documented findings and plan of care. Patient was seen and examined. 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 History of Any Multi-Drug Resistant Organisms: None Reported Past Surgical History: Appendectomy, Orthopedic Surgery Additional Past Surgical History / Comment(s): L chest fatty tumor removed, bilateral knee arthroscopies, R plantar fasciotomy, R rotator cuff repair, colonoscopies Past Anesthesia/Blood Transfusion Reactions: No Reported Reaction, Motion Sic kness Smoking Status: Light tobacco smoker - Past Family History Father Family Medical History: Cancer Mother Family Medical History: Memory Impairment Additional Family Medical History / Comment(s): alzheimers Medications and Allergies Home Medications Medication Instructions Recorded Confirmed Type Mesalamine [Asacol Hd] 800 mg PO BID 01/15/14 12/01/19 History Omeprazole [PriLOSEC] 20 mg PO BID 01/15/14 12/01/19 History Tamsulosin HCl [Flomax] 0.4 mg PO HS 01/15/14 12/01/19 History Multivitamins, Thera [Multivitamin 1 tab PO DAILY 02/05/16 12/01/19 History (formulary)] Calcium Carbonate [Calcium] 600 mg PO DAILY 01/23/18 12/01/19 History Celecoxib [CeleBREX] 200 mg PO DAILY 01/23/18 12/01/19 History traMADol HCL [Ultram] 50 mg PO BID 01/23/18 12/01/19 History Vit C/E/Zn/Coppr/Lutein/Zeaxan 1 cap PO BID 01/24/18 12/01/19 History [Preservision Areds 2 Softgel] Losartan [Cozaar] 25 mg PO DAILY 07/04/19 12/01/19 History Hyoscyamine Sulfate [Levbid] 0.375 mg PO BID PRN 12/01/19 12/01/19 History Hyoscyamine Sulfate [Levbid] 0.375 mg PO HS 12/01/19 12/01/19 History Simvastatin [Zocor] 40 mg PO HS 12/01/19 12/01/19 History Tamsulosin [Flomax] 0.4 mg PO HS 12/01/19 12/01/19 History Testosterone [Androgel 1.62% Gel 4 pump TOPICAL DAILY 12/01/19 12/01/19 History Pump] Allergies Allergy/AdvReac Type Severity Reaction Status Date / Time No Known Allergies Allergy Verified 12/01/19 11:35 Physical Exam Vitals: Vital Signs Temp Pulse Pulse Resp BP Pulse Ox 12/01/19 13:54 98.1 F 12/01/19 13:44 98.3 F 87 18 120/79 98 12/01/19 12:40 77 18 111/78 98 12/01/19 11:05 78 12/01/19 10:29 98.2 F 95 18 134/87 97 Intake and Output 11/30/19 12/01/19 12/01/19 22:59 06:59 14:59 Other: Weight 102.058 kg Results 12/01/19 10:48 12/01/19 10:48 Cardiac Enzymes 12/01/19 12/01/19 Range/Units 10:48 10:48 AST 39 (17-59) U/L Troponin I <0.012 (0.000-0.034) ng/mL Coagulation 12/01/19 Range/Units 10:48 PT 9.7 (9.0-12.0) sec APTT 23.8 (22.0-30.0) sec CBC 12/01/19 Range/Units 10:48 WBC 6.4 (3.8-10.6) k/uL RBC 4.87 (4.30-5.90) m/uL Hgb 14.3 (13.0-17.5) gm/dL Hct 42.4 (39.0-53.0) % Plt Count 226 (150-450) k/uL Comprehensive Metabolic Panel 12/01/19 Range/Units 10:48 Sodium 138 (137-145) mmol/L Potassium 4.2 (3.5-5.1) mmol/L Chloride 105 (98-107) mmol/L Carbon Dioxide 25 (22-30) mmol/L BUN 11 (9-20) mg/dL Creatinine 0.65 L (0.66-1.25) mg/dL Glucose 112 H (74-99) mg/dL Calcium 9.9 (8.4-10.2) mg/dL AST 39 (17-59) U/L ALT 59 H (4-49) U/L Alkaline Phosphatase 87 (38-126) U/L Total Protein 7.1 (6.3-8.2) g/dL Albumin 4.6 (3.5-5.0) g/dL Current Medications Generic Name Dose Route Start Last Admin Trade Name Freq PRN Reason Stop Dose Admin Aspirin 325 mg 12/02/19 09:00 Aspirin PO DAILY MARIELY Atorvastatin Calcium 20 mg 12/01/19 21:00 Lipitor PO HS MARIELY Balsalazide 2,250 mg 12/01/19 16:00 Colazal PO TID MARIELY Sodium Chloride 1,000 mls @ 100 mls/hr 12/01/19 10:45 12/01/19 14:01 Saline 0.9% IV 100 mls/hr .Q10H MARIELY Administration Heparin Sodium/Sodium Chloride 250 mls @ 10 mls/hr 12/01/19 13:30 12/01/19 13:54 25,000 unit/ Sodium Chloride IV 9.798 units/kg/hr .Q24H MARIELY 10 mls/hr Administration Protocol 9.798 UNITS/KG/HR Losartan Potassium 25 mg 12/02/19 09:00 Cozaar PO DAILY MARIELY Nitroglycerin 0.4 mg 12/01/19 13:19 Nitrostat SUBLINGUAL Q5M PRN Chest Pain Pantoprazole Sodium 40 mg 12/02/19 07:30 Protonix PO AC-BRKFST MARIELY Tamsulosin HCl 0.4 mg 12/01/19 21:00 Flomax PO HS MARIELY Tramadol HCl 50 mg 12/01/19 21:00 Ultram PO BID MARIELY Intake and Output 11/30/19 12/01/19 12/01/19 22:59 06:59 14:59 Other: Weight 102.058 kg Patient Weight 12/02/19 06:59 Weight 102.058 kg 12/01/19 10:48 12/01/19 10:48
[2019-12-01 14:48] VITALS: RESP 16
--- NOTE | 2019-12-01 15:06 | P.HPIM ---
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 In the retrosternal area just tightness nonradiating about 4/10 in severity no nausea no vomiting doesn't appear to be gases visual reflux disease patient does have gastroesophageal reflux disease nonpleuritic. Patient had an EKG which did not show any acute ST-T wave changes except for mild flattening indents of T waves in inferior leads troponins are negative. Patient had a stress test 2 years ago and echocardiogram both of which had found out to be within normal limits patient does have family history of carotid disease and second-degree family members no premature carotid artery disease. Patient chest pain is nonpruritic not associated with lack lightheadedness diaphoresis or shortness of breath nonexertional chest pain. Review of Systems REVIEW OF SYSTEMS: CONSTITUTIONAL: No fever, no malaise, no fatigue. HEENT: No recent visual problems or hearing problems. Denied any sore throat. CARDIOVASCULAR: No, orthopnea, PND, no palpitations, no syncope. PULMONARY: No shortness of breath, no cough, no hemoptysis. GASTROINTESTINAL: No diarrhea, no nausea, no vomiting, no abdominal pain. NEUROLOGICAL: No headaches, no weakness, no numbness. HEMATOLOGICAL: Denies any bleeding or petechiae. GENITOURINARY: Denies any burning micturition, frequency, or urgency. MUSCULOSKELETAL/RHEUMATOLOGICAL: Denies any joint pain, swelling, or any muscle pain. ENDOCRINE: Denies any polyuria or polydipsia. The rest of the 14-point review of systems is negative. 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 History of Any Multi-Drug Resistant Organisms: None Reported Past Surgical History: Appendectomy, Orthopedic Surgery Additional Past Surgical History / Comment(s): L chest fatty tumor removed, bilateral knee arthroscopies, R plantar fasciotomy, R rotator cuff repair, colonoscopies Past Anesthesia/Blood Transfusion Reactions: No Reported Reaction, Motion Sickness Smoking Status: Light tobacco smoker - Past Family History Father Family Medical History: Cancer Mother Family Medical History: Memory Impairment Additional Family Medical History / Comment(s): alzheimers Medications and Allergies Home Medications Medication Instructions Recorded Confirmed Type Mesalamine [Asacol Hd] 800 mg PO BID 01/15/14 12/01/19 History Omeprazole [PriLOSEC] 20 mg PO BID 01/15/14 12/01/19 History Tamsulosin HCl [Flomax] 0.4 mg PO HS 01/15/14 12/01/19 History Multivitamins, Thera [Multivitamin 1 tab PO DAILY 02/05/16 12/01/19 History (formulary)] Calcium Carbonate [Calcium] 600 mg PO DAILY 01/23/18 12/01/19 History Celecoxib [CeleBREX] 200 mg PO DAILY 01/23/18 12/01/19 History traMADol HCL [Ultram] 50 mg PO BID 01/23/18 12/01/19 History Vit C/E/Zn/Coppr/Lutein/Zeaxan 1 cap PO BID 01/24/18 12/01/19 History [Preservision Areds 2 Softgel] Losartan [Cozaar] 25 mg PO DAILY 07/04/19 12/01/19 History Hyoscyamine Sulfate [Levbid] 0.375 mg PO BID PRN 12/01/19 12/01/19 History Hyoscyamine Sulfate [Levbid] 0.375 mg PO HS 12/01/19 12/01/19 History Simvastatin [Zocor] 40 mg PO HS 12/01/19 12/01/19 History Tamsulosin [Flomax] 0.4 mg PO HS 12/01/19 12/01/19 History Testosterone [Androgel 1.62% Gel 4 pump TOPICAL DAILY 12/01/19 12/01/19 History Pump] Allergies Allergy/AdvReac Type Severity Reaction Status Date / Time No Known Allergies Allergy Verified 12/01/19 11:35 Physical Exam Vitals: Vital Signs Temp Pulse Pulse Resp BP BP Pulse Ox 12/01/19 14:47 98.1 F 71 16 138/55 98 12/01/19 14:46 98 12/01/19 13:54 98.1 F 12/01/19 13:44 98.3 F 87 18 120/79 98 12/01/19 12:40 77 18 111/78 98 12/01/19 11:05 78 12/01/19 10:29 98.2 F 95 18 134/87 97 Intake and Output 11/30/19 12/01/19 12/01/19 22:59 06:59 14:59 Other: Weight 102.058 kg PHYSICAL EXAMINATION: GENERAL: The patient is alert and oriented x3, not in any acute distress. Well developed, well nourished. HEENT: Pupils are round and equally reacting to light. EOMI. No scleral icterus. No conjunctival pallor. Normocephalic, atraumatic. No pharyngeal erythema. No thyromegaly. CARDIOVASCULAR: S1 and S2 present. No murmurs, rubs, or gallops. PULMONARY: Chest is clear to auscultation, no wheezing or crackles. ABDOMEN: Soft, nontender, nondistended, normoactive bowel sounds. No palpable organomegaly. MUSCULOSKELETAL: No joint swelling or deformity. EXTREMITIES: No cyanosis, clubbing, or pedal edema. NEUROLOGICAL: Gross neurological examination did not reveal any focal deficits. SKIN: No rashes. Results CBC & Chem 7: 12/01/19 10:48 12/01/19 10:48 Labs: Abnormal Lab Results - Last 24 Hours (Table) 12/01/19 Range/Units 10:48 Creatinine 0.65 L (0.66-1.25) mg/dL Glucose 112 H (74-99) mg/dL ALT 59 H (4-49) U/L Thrombosis Risk Factor Assmnt - Choose All That Apply Any of the Below Risk Factors Present?: Yes Each Factor Represents 1 point: Age 41-60 years, Obesity (BMI >25) Other Risk Factors: No Other congenital or acquired thrombophilia - If yes, enter type in comment: No Thrombosis Risk Factor Assessment Total Risk Factor Score: 2 Thrombosis Risk Factor Assessment Level: Low Risk Assessment and Plan Plan: -Chest pain: Atypical will rule out a concurrent syndromes cardiology will evaluate the patient. Echocardiogram will be obtained. Chest pain is probably related to anxiety and stress -Hypertension -hyperlipidemia -Gastroesophageal reflux disease benign prostatic hepatorrhaphy For above-mentioned chronic medical problems patient will be resumed and continued on appropriate home medications
[2019-12-01] MEDS: BALSALAZIDE DISODIUM 750 MG CAPSULE PO SCH ×2 (15:35→22:33)
--- NOTE | 2019-12-01 17:29 | ECHOF ---
Referral Reason:cp MEASUREMENTS -------- HEIGHT: 152.4 cm WEIGHT: 102.1 kg BP: RVIDd: 3.3 cm (< 3.3) IVSd: 1.4 cm (0.6 - 1.1) LVIDd: 4.1 cm (3.9 - 5.3) LVPWd: 1.3 cm (0.6 - 1.1) IVSs: 1.8 cm LVIDs: 3.3 cm LVPWs: 1.2 cm LAESV Index (A-L): 28.25 ml/m Ao Diam: 3.9 cm (2.0 - 3.7) AV Cusp: 2.3 cm (1.5 - 2.6) MV EXCURSION: 19.176 mm (> 18.000) MV EF SLOPE: 116 mm/s (70 - 150) EPSS: 0.8 cm MV E Akhil: 0.55 m/s MV DecT: 217 ms MV A Akhil: 0.71 m/s MV E/A Ratio: 0.78 RAP: 5.00 mmHg RVSP: 20.37 mmHg FINDINGS -------- Sinus rhythm. This was a technically adequate study. The left ventricular size is normal. There is moderate concentric left ventricular hypertrophy. O verall left ventricular systolic function is normal with, an EF between 55 - 60 %. The right ventricle is normal in size. Normal LA size by volume 22+/-6 ml/m2. The right atrial size is normal. There is mild aortic valve sclerosis. Trace to mild aortic regurgitation. Mild mitral annular calcification present. Mild mitral regurgitation is present. Mild tricuspid regurgitation present. Right ventricular systolic pressure is normal at < 35 mmHg. The pulmonic valve was not well visualized. There is no pulmonic regurgitation present. The aortic root size is normal. There is no pericardial effusion. CONCLUSIONS -------- 1. There is moderate concentric left ventricular hypertrophy. 2. Overall left ventricular systolic function is normal with, an EF between 55 - 60 %. 3. Normal LA size by volume 22+/-6 ml/m2. 4. There is mild aortic valve sclerosis. 5. Trace to mild aortic regurgitation. 6. Mild mitral annular calcification present. 7. Mild mitral regurgitation is present. 8. Mild tricuspid regurgitation present. 9. There is no pericardial effusion. 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
[2019-12-01] MEDS ORDERED: TAMSULOSIN 0.4 MG CAP.ER.24H PO SCH (21:00)
[2019-12-01] MEDS ORDERED: ATORVASTATIN 20 MG TAB PO SCH (21:00)
[2019-12-01] MEDS: traMADol 50 MG TAB PO SCH (22:29)
[2019-12-01] MEDS ORDERED: HEPARIN SODIUM,PORCINE 5,000 UNIT/ML 1 ML VIAL IV STA (22:44)
[2019-12-02 06:43] LABS: Cholesterol 174 mg/dL (<200); HDL Cholesterol 48 mg/dL (40-60); LDL Cholesterol,Calculated 87 mg/dL (0-99); Triglycerides 194 mg/dL (<150)
[2019-12-02] MEDS ORDERED: PANTOPRAZOLE 40 MG TABLET PO SCH (07:30)
[2019-12-02 07:53] VITALS: BP 131/87; PULSE 73; TEMP 97.4
[2019-12-02] MEDS: traMADol 50 MG TAB PO SCH (08:34)
[2019-12-02] MEDS: BALSALAZIDE DISODIUM 750 MG CAPSULE PO SCH (08:34)
[2019-12-02] MEDS: SODIUM CHLORIDE 0.9% 1,000 ML IV SCH (08:35)
[2019-12-02] MEDS ORDERED: ASPIRIN 81 MG PO SCH (09:00)
[2019-12-02] MEDS ORDERED: ASPIRIN 325 MG TAB PO SCH (09:00)
[2019-12-02] MEDS ORDERED: LOSARTAN 25 MG TAB PO SCH (09:00)
--- NOTE | 2019-12-02 10:26 | PN ---
PROGRESS NOTE Roc is a 59-year-old gentleman who is admitted to the hospital with chest pain and ruled out for myocardial infarction. He had an echocardiogram that shows normal LV function and wall motion. This morning, he is comfortable at rest and is free of symptoms and wishes to go home as 1 of his family members is terminally ill. On exam, comfortable at rest. Vital signs are stable. There is no jugular venous distention. Chest exam reveals good air entry bilaterally. Heart exam reveals first and second heart sounds. No gallop. No murmur. No rub. Abdomen is soft, nontender. Exam of extremities did not reveal any edema. Peripheral pulses are felt. 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 ASSESSMENT: 1. Precordial chest pain. 2. Hypertension. 3. Dyslipidemia. The patient is currently free of chest pain. Echo looks normal. He is stable for discharge. We will have outpatient followup through our office and an outpatient stress test. YAMILETH / NIRN: [id number] /
--- NOTE | 2019-12-02 14:17 | P.DS ---
Providers Date of admission: 12/01/19 13:19 Attending physician: Billy Davis Consults: 12/01/19 13:19 Consult Physician Urgent Consulting Provider: Chavez Fields Consult Reason/Comments: chest pain Do you want consulting provider notified?: Yes Primary care physician: Vasile Ledesma [facility] Course: Patient was admitted for chest pain rule out intercurrent syndromes patient had a stress test years ago which was negative for any inducible ischemia. Patient chest pain is atypical and probably related to his stress. Patient had an echocardiogram as recommended by cardiology which did not show any significant abnormality patient's troponins were negative patient was cleared by cardiology patient was subsequently discharged. For rest of the hospitalization course and the other medical problems that were addressed. Please refer to my HPI from yesterday. Patient Condition at Discharge: Stable Plan - Discharge Summary Discharge Rx Participant: No New Discharge Prescriptions: No Action Omeprazole [PriLOSEC] 20 mg PO BID Tamsulosin HCl [Flomax] 0.4 mg PO HS Mesalamine [Asacol Hd] 800 mg PO BID Multivitamins, Thera [Multivitamin (formulary)] 1 tab PO DAILY Celecoxib [CeleBREX] 200 mg PO DAILY traMADol HCL [Ultram] 50 mg PO BID Calcium Carbonate [Calcium] 600 mg PO DAILY Vit C/E/Zn/Coppr/Lutein/Zeaxan [Preservision Areds 2 Softgel] 1 cap PO BID Losartan [Cozaar] 25 mg PO DAILY Hyoscyamine Sulfate [Levbid] 0.375 mg PO BID PRN PRN Reason: FLARE UP Simvastatin [Zocor] 40 mg PO HS Tamsulosin [Flomax] 0.4 mg PO HS Testosterone [Androgel 1.62% Gel Pump] 4 pump TOPICAL DAILY Hyoscyamine Sulfate [Levbid] 0.375 mg PO HS Discharge Medication List Mesalamine [Asacol Hd] 800 mg PO BID 01/15/14 [History] Omeprazole [PriLOSEC] 20 mg PO BID 01/15/14 [History] Tamsulosin HCl [Flomax] 0.4 mg PO HS 01/15/14 [History] Multivitamins, Thera [Multivitamin (formulary)] 1 tab PO DAILY 02/05/16 [History] Calcium Carbonate [Calcium] 600 mg PO DAILY 01/23/18 [History] Celecoxib [CeleBREX] 200 mg PO DAILY 01/23/18 [History] traMADol HCL [Ultram] 50 mg PO BID 01/23/18 [History] Vit C/E/Zn/Coppr/Lutein/Zeaxan [Preservision Areds 2 Softgel] 1 cap PO BID 01/24/18 [History] Losartan [Cozaar] 25 mg PO DAILY 07/04/19 [History] Hyoscyamine Sulfate [Levbid] 0.375 mg PO BID PRN 12/01/19 [History] Hyoscyamine Sulfate [Levbid] 0.375 mg PO HS 12/01/19 [History] Simvastatin [Zocor] 40 mg PO HS 12/01/19 [History] Tamsulosin [Flomax] 0.4 mg PO HS 12/01/19 [History] Testosterone [Androgel 1.62% Gel Pump] 4 pump TOPICAL DAILY 12/01/19 [History] Follow up Appointment(s)/Referral(s): Vasile Ledesma MD [Primary Care Provider] - 1-2 days Paula Wolff MD [STAFF PHYSICIAN] - 1 Week Patient Instructions/Handouts: Chest Pain (DC) Activity/Diet/Wound Care/Special Instructions: follow up outpatient for stress testing Discharge Disposition: HOME SELF-CARE
== END 2019-12-02 09:15 | disposition home or self-care (01) ==
LOC: EC 10:26 → 1SOBS 13:19
PROVIDERS: ADMIT Internal Medicine; ATTEND Internal Medicine
DX: R07.89 Other chest pain (principal); E66.9 Obesity, unspecified; E78.5 Hyperlipidemia, unspecified; F17.200 Nicotine dependence, unspecified, uncomplicated; F41.9 Anxiety disorder, unspecified; I10 Essential (primary) hypertension; K21.9 Gastro-esophageal reflux disease without esophagitis; K50.90 Crohn's disease, unspecified, without complications; M06.9 Rheumatoid arthritis, unspecified; M17.12 Unilateral primary osteoarthritis, left knee; N40.0 Benign prostatic hyperplasia without lower urinary tract symptoms; Z68.32 Body mass index [BMI] 32.0-32.9, adult; Z79.1 Long term (current) use of non-steroidal anti-inflammatories (NSAID); Z79.899 Other long term (current) drug therapy; Z82.0 Family history of epilepsy and other diseases of the nervous system; Z98.42 Cataract extraction status, left eye; Z98.41 Cataract extraction status, right eye; Z03.818 Encounter for observation for suspected exposure to other biological agents ruled out
CPT/HCPCS: 96361 ×3; 96366; 96376 ×2; 96365; 99285; 36415; 93005 ×2; 93306; 80061; 80053; 83735; 84484; 85025; 85610; 85730 ×2; 71046; G0378 ×2; U0003; J1644 ×2

== ENCOUNTER 2019-12-22 07:26 | Day surgery (SDC) | payer BC ==
[2019-12-19 13:35] VITALS: BMI 32.7
[~2019-12-22 07:26] MED LIST changes: -DEXAMETHASONE SOD PHOSPHATE 10 MG/ML 1 ML VIAL IV ONE; +LIDOCAINE 1% (10MG/ML) FOR IV START INTRADERMA PRN; -LIDOCAINE 1% 20 ML VIAL (10MG/ML) FOR IV START INTRADERMA PRN; -MIDAZOLAM 2 MG/2 ML VIAL IV PRN; -ONDANSETRON 4 MG/2 ML VIAL IVP ONE; -fentaNYL (PF) 50 MCG/ML 2 ML AMP IV PRN
[2019-12-22 07:50] VITALS: RESP 16; TEMP 98.3
[2019-12-22] MEDS ORDERED: LIDOCAINE 1% INJ 10MG/ML (20 ML MDV) ONE (08:15)
[2019-12-22] MEDS ORDERED: PROPOFOL 10 MG/ML 20 ML VIAL IV ONE (08:15)
--- NOTE | 2019-12-22 08:35 | P.PCN ---
Date of Procedure: 12/22/19 Procedure(s) Performed: Brief history: Patient is a pleasant 59-year-old white female scheduled for an elective upper endoscopy as well as colonoscopy as a part of evaluation of atypical chest pain for the last few weeks duration. Has history of colon colitis diagnosed in the and hence scheduled for a surveillance colonoscopy today. Procedure performed: Esophagogastroduodenoscopy with biopsy Colonoscopy with random biopsy Preoperative diagnosis: Atypical chest pain Long-standing history of Crohn colitis Anesthesia: MAC Procedure: After informed consent was obtained from the patient was brought into the endoscopy unit and IV sedation was administered by anesthesia under continuous monitoring. Initially upper endoscopy was done. The Olympus GF 160 video endoscope was inserted inserted into the mouth and esophagus intubated without any difficulty and was gradually advanced into the stomach and duodenum and carefully examined. The bulb and second part of the duodenum appeared normal. The scope was then withdrawn into the stomach adequately insufflated with air and upon careful examination the antrum had mild patchy areas of erythema and biopsies were done from this area. The body, cardia and fundus appeared normal. The scope was then withdrawn into the esophagus. The GE junction was located at 40 cm to the incisors. It appeared regular with no erythema erosions or ulcerations. Rest of the esophagus appeared normal. Biopsies were done from the distal esophagus. Patient tolerated the procedure well. At this time the patient continued to remain sedation. Initial digital rectal examination was normal. Olympus CF 160 video colonoscope was then inserted into the rectum and gradually advanced to the cecum without any difficulty. Careful examination was performed as the scope was gradually being withdrawn. The prep was excellent. The cecum, ascending colon, transverse colon, descending colon, sigmoid colon and rectum appeared normal. Random biopsies were done from the colon. Retroflexion was performed in the rectum and no lesions were noted. Patient tolerated the procedure well. Impression: 1. Upper endoscopy revealed mild antral gastritis but no evidence of esophagitis 2. Colonoscopy was within normal limits with no evidence of colitis or col orectal neoplasia Recommendations: Findings of this examination were discussed with the patient as well as his family. He was advised to follow with the biopsy results. He will continue with Prilosec 20 mg twice daily and follow antireflux measures. He can have a repeat colonoscopy in 3 years as part of surveillance of long-standing history of Crohn's colitis..
[2019-12-22 08:53] VITALS: BP 132/81; PULSE 76
== END 2019-12-22 09:08 | disposition home or self-care (01) ==
LOC: ORWHC2ENDO 07:26
PROVIDERS: ATTEND Internal Medicine Gastroenterology
DX: Z12.11 Encounter for screening for malignant neoplasm of colon (principal); K50.90 Crohn's disease, unspecified, without complications; K29.50 Unspecified chronic gastritis without bleeding; R07.89 Other chest pain; K21.9 Gastro-esophageal reflux disease without esophagitis; I10 Essential (primary) hypertension; E78.5 Hyperlipidemia, unspecified; F17.200 Nicotine dependence, unspecified, uncomplicated; M19.90 Unspecified osteoarthritis, unspecified site; Z79.1 Long term (current) use of non-steroidal anti-inflammatories (NSAID); Z79.899 Other long term (current) drug therapy; Z79.891 Long term (current) use of opiate analgesic; Z79.890 Hormone replacement therapy
CPT/HCPCS: 88305; 45380; 43239; J2001; J2704

== ENCOUNTER → 2021-02-18 | Outpatient (CLI) | payer BC ==
[2021-02-18 17:36] LABS: Hemoglobin A1C 5.7 % (4.0-6.0)
[2021-02-19 23:24] LABS: African American GFR (CKD) 105.3 (60.0-200.0); Albumin 4.7 g/dL (3.8-4.9); Albumin/Globulin Ratio 2.09 (1.60-3.17); BUN/Creat Ratio 18.39 Ratio (12.00-20.00); Blood Urea Nitrogen 16.7 mg/dL (9.0-27.0); Calcium 10.1 mg/dL (8.7-10.3); Carbon Dioxide 19.3 mmol/L (21.6-31.8); Chol/HDL Ratio 3.83 Ratio; Globulin 2.3 g/dL (1.6-3.3); HDL Cholesterol 71.3 mg/dL (40.00-60.00); LDL Cholesterol,Calculated 170.9 mg/dL (0.0-131.0); Non-African American GFR(CKD) 90.9 (60.0-200.0); Potassium 5.2 mmol/L (3.5-5.5); T4, Free (Free Thyroxine) 0.96 ng/dL (0.800-1.800); Total Bilirubin 0.5 mg/dL (0.30-1.20); VLDL Calculation 30.8 mg/dL (5.00-40.00)
== END | disposition home or self-care (01) ==
LOC: LABWHC1 08:51
PROVIDERS: ATTEND Internal Medicine
DX: Z00.00 Encounter for general adult medical examination without abnormal findings (principal); E78.5 Hyperlipidemia, unspecified; K21.9 Gastro-esophageal reflux disease without esophagitis; D40.0 Neoplasm of uncertain behavior of prostate; M19.90 Unspecified osteoarthritis, unspecified site; K50.90 Crohn's disease, unspecified, without complications
CPT/HCPCS: 84439; 80061; 80053; 84443; 83036; 36415; G0103

== ENCOUNTER → 2022-04-07 | Outpatient (CLI) | payer BC ==
[2022-04-07 11:18] LABS: Basophils # (A) 0.02 X 10*3/uL (0.00-0.10); Basophils % (A) 0.4 %; Eosinophils # (A) 0.26 X 10*3/uL (0.04-0.35); Eosinophils % (A) 5.8 %; HCT 41.5 % (39.6-50.0); Immature Grans, Automated 0.4 %; Lymphocytes # (A) 1.35 X 10*3/uL (0.90-5.00); Lymphocytes % (A) 30.3 %; MCH 29.7 pg (27.0-32.0); MCHC 33.7 g/dL (32.0-37.0); MCV 87.9 fL (80.0-97.0); Mean Platelet Volume 9.4 fL (9.5-12.2); Monocytes # (A) 0.53 X 10*3/uL (0.20-1.00); Monocytes % (A) 11.9 %; NRBC Per 100 WBC 0 /100 WBCS (0.0-0.0); Neutrophils # (A) 2.27 X 10*3/uL (1.80-7.70); Neutrophils % (A) 51.2 %; Platelet Count 206 X 10*3/uL (140-440); RBC 4.72 X 10*6/uL (4.40-5.60); RDW 13.1 % (11.5-14.5); WBC 4.45 X 10*3/uL (4.50-10.00)
[2022-04-07 11:39] LABS: African American GFR (CKD) 112.1 (60.0-200.0); Anion Gap 9.9 mmol/L (10.00-18.00); BUN/Creat Ratio 13.59 Ratio (12.00-20.00); Blood Urea Nitrogen 10.6 mg/dL (9.0-27.0); Calcium 9.8 mg/dL (8.7-10.3); Non-African American GFR(CKD) 96.7 (60.0-200.0); Potassium 4.9 mmol/L (3.5-5.5)
[2022-04-07 11:53] LABS: INR 0.96 (0.90-1.11); Prothrombin Time 10.6 sec (9.9-11.9)
== END | disposition home or self-care (01) ==
LOC: LABPAT 07:42
PROVIDERS: ATTEND Orthopaedic Surgery
DX: Z01.812 Encounter for preprocedural laboratory examination (principal); M17.12 Unilateral primary osteoarthritis, left knee
CPT/HCPCS: 80048; 85025; 85610; 87070

== ENCOUNTER 2022-04-13 05:54 | Day surgery (SDC) | payer BC ==
--- NOTE | 2022-04-12 23:07 | HP ---
HISTORY AND PHYSICAL DATE OF SURGERY: 04/13/2022 HISTORY OF PRESENT ILLNESS: Roc Bird is a 62-year-old patient seen with symptomatic left knee osteoarthritis. We discussed options for treatment. He elected to proceed with left total knee arthroplasty. Consent regarding the procedure was obtained. Medical clearance was provided. PAST MEDICAL HISTORY: Gastroesophageal reflux disease, hyperlipidemia, colitis. PAST SURGICAL HISTORY: Appendectomy, vasectomy, knee arthroscopy. DAILY MEDICATIONS: 1. Flomax. 2. Metamucil. 3. Omeprazole. 4. Celebrex. 5. Tramadol. 6. Crestor. ALLERGIES: None. SOCIAL HISTORY: He denies tobacco use. PHYSICAL EVALUATION OF THE LEFT KNEE: His range of motion is 0-130. He has mild effusion. Tenderness medial joint line. Crepitus along the medial patellofemoral compartments with range of motion. Pain with patellofemoral compression. Ligaments stable. Hip rotation without pain. Distal neurovascular exam is intact. RADIOGRAPHS: Radiographs of the left knee reveal severe osteoarthritic changes. IMPRESSION: 1. Left knee osteoarthritis. 2. Hyperlipidemia. 3. Gastroesophageal reflux disease. PLAN: Left total knee arthroplasty. MMODL / IJN: [id number] /
[~2022-04-13 05:54] MED LIST changes: +ACETAMINOPHEN TAB 500 MG TAB PO PRN; -LACTATED RINGERS 1,000 ML IV SCH; -LIDOCAINE 1% (10MG/ML) FOR IV START INTRADERMA PRN; +MELOXICAM 7.5 MG TAB PO PRN; +TRANEXAMIC ACID IN NACL,ISO-OS 1,000 MG in SALINE 1 100ML.BAG IVPB PRN
[2022-04-13] MEDS ORDERED: ONDANSETRON 4 MG/2 ML VIAL IVP ONE (05:59)
[2022-04-13] MEDS ORDERED: DEXAMETHASONE SOD PHOSPHATE 4 MG/ML 1 ML VIAL IV ONE (05:59)
[2022-04-13] MEDS ORDERED: LIDOCAINE 1% (10MG/ML) FOR IV START INTRADERMA PRN (05:59)
[2022-04-13] MEDS ORDERED: MIDAZOLAM 2 MG/2 ML VIAL IV PRN (05:59)
[2022-04-13] MEDS ORDERED: LACTATED RINGERS 1,000 ML IV ONE ×2 (06:20→09:08)
[2022-04-13] MEDS ORDERED: MIDAZOLAM 2 MG/2 ML VIAL IVP ONE (07:12)
[2022-04-13] MEDS ORDERED: NEOSTIGMINE 1 MG/ML 10 ML VIAL ONE (07:30)
[2022-04-13] MEDS ORDERED: KETAMINE 10 MG/ML 20 ML VIAL ONE (07:30)
[2022-04-13] MEDS ORDERED: HYDROmorphone (PF) 1 MG/ML ONE (07:30)
[2022-04-13] MEDS ORDERED: DEXAMETHASONE SOD PHOSPHATE 4 MG/ML 1 ML VIAL ONE (07:30)
[2022-04-13] MEDS ORDERED: PROPOFOL 10 MG/ML 20 ML VIAL IV ONE (07:30)
[2022-04-13] MEDS ORDERED: ROPIVACAINE 5 MG/ML 30 ML VIAL ONE (07:30)
[2022-04-13] MEDS ORDERED: ROCURONIUM 10 MG/ML (5 ML VIAL) IV ONE (07:30)
[2022-04-13] MEDS ORDERED: SUCCINYLCHOLINE CHLORIDE 200 MG/10 ML VIAL IV ONE (07:30)
[2022-04-13] MEDS ORDERED: GLYCOPYRROLATE 0.2 MG/ML 2 ML VIAL ONE (07:30)
[2022-04-13] MEDS ORDERED: TRANEXAMIC ACID IN NACL,ISO-OS 1,000 MG/100 ML BAG ONE (07:30)
[2022-04-13] MEDS ORDERED: LIDOCAINE 2% INJ 20 MG/ML (2 ML VIAL) ONE (07:30)
[2022-04-13] MEDS ORDERED: fentaNYL (PF) 50 MCG/ML 2 ML AMP ONE (07:30)
[2022-04-13] MEDS ORDERED: SODIUM CHLORIDE 0.9% (PF) 10 ML VIAL ONE (07:30)
--- NOTE | 2022-04-13 07:31 | P.ANPRN ---
Procedure Note - Anesthesia - Nerve Block Performed Left Adductor Canal Infusion Time Out Performed: Yes Date of Procedure: 04/13/22 Procedure Start Time: : Procedure Stop Time: :19 Location of Patient: PreOp Indication: Requested by Surgeon Specifically requested for management of pain by DrCeleste: José Luis Saucedo Sedation Type: Sedate with meaningful contact maintained Preparation: Sterile Prep, Sterile Dressing Position: Supine Catheter: Indwelling Needle Types: Pajunk Needle Gauge: 18 Ultrasound used to visualize needle placement: Yes Ultrasound used to observe medication spread: Yes Injectate: 0.5% Ropivacaine (see comment for volume) (15 ml +10 ml NS PF) Blood Aspirated: No Pain Paresthesia on Injection Noted: No Resistance on Injection: Normal Image Stored and Saved: Yes Events: Uneventful and Well Tolerated
--- NOTE | 2022-04-13 07:33 | P.ANPRN ---
Procedure Note - Anesthesia - Nerve Block Performed Left iPack Single Time Out Performed: Yes Date of Procedure: 04/13/22 Procedure Start Time: : Procedure Stop Time: : Location of Patient: PreOp Indication: Requested by Surgeon Sedation Type: Sedate with meaningful contact maintained Preparation: Sterile Prep Position: Right Lateral Needle Types: Pajunk Needle Gauge: 21 Ultrasound used to visualize needle placement: Yes Ultrasound used to observe medication spread: Yes Injectate: 0.5% Ropivacaine (see comment for volume) (15 ml +10 ml NSPF+ 4 mg Dexamethasone) Blood Aspirated: No Pain Paresthesia on Injection Noted: No Resistance on Injection: Normal Image Stored and Saved: Yes Events: Uneventful and Well Tolerated
[2022-04-13] MEDS ORDERED: ROPIVACAINE 0.2%-NS ON-Q PUMP 1,090 MG, EMPTY PAIN BALL 1 EACH MISCELLANE PRN (07:34)
[2022-04-13] MEDS ORDERED: ceFAZolin 1,000 MG in SODIUM CHLORIDE 0.9% 1,000 ML IRRIGATION ONE (07:57)
[2022-04-13] MEDS ORDERED: HYDROmorphone 1 MG/ML 1 ML SYRINGE IVP PRN (09:08)
[2022-04-13] MEDS ORDERED: HYDROcodone/APAP 7.5-325MG 1 EACH TAB PO PRN (09:08)
[2022-04-13] MEDS ORDERED: ONDANSETRON 4 MG/2 ML VIAL IVP PRN (09:08)
[2022-04-13] MEDS ORDERED: NALOXONE 0.4 MG/ML 1 ML VIAL IV PRN (09:08)
[2022-04-13] MEDS ORDERED: HYDROmorphone 0.5 MG/0.5 ML SYRINGE IVP PRN ×2 (09:08)
[2022-04-13] MEDS ORDERED: HYDROcodone/APAP 5-325MG 1 EACH TAB PO PRN (09:08)
--- NOTE | 2022-04-13 09:08 | P.OP ---
Date of Procedure: 04/13/22 Preoperative Diagnosis: Left knee osteoarthritis Postoperative Diagnosis: Left knee osteoarthritis Procedure(s) Performed: Left total knee arthroplasty Implants: 1. Depuy attune size 7 left cruciate retaining cemented femur 2. Depuy attune size 7 fixed bearing cemented tibial baseplate 3. Depuy attune size 7 fixed bearing cruciate retaining 10 mm polyethylene tibial insert 4. Depuy attune 38 mm all polyethylene cemented patella Anesthesia: GETA, regional (Adductor canal catheter, Ipack block) Surgeon: José Luis Saucedo Flight Coordinator #1: Stiven Rivero Estimated Blood Loss (ml): 45 Pathology: other (Bone) Condition: stable Disposition: PACU Indications for Procedure: 62-year-old patient seen with progressive symptomatic left knee osteoarthritis. After options were discussed she elected to proceed with total knee arthrop lasty. Operative Findings: see description of procedure Description of Procedure: Patient was taken to the operative suite after having an adductor canal catheter placed by the department of anesthesia. Patient underwent a general anesthetic by the department of anesthesia. Patient was given preoperative IV intake antibiotics and TXA. A well-padded tourniquet was placed about the left lower extremity. The lower extremity was then prepped and draped in the normal sterile orthopedic fashion. The extremity was elevated, a tourniquet was ins ufflated to 300. A standard anterior incision was made sharply through skin. Dissection was taken down through the subcutaneous soft tissues down to the extensor mechanism. A medial arthrotomy was performed, patella was everted and knee was flexed. There was advanced osteoarthritis noted. I introduced my distal intramedullary femoral drill. I then introduced the distal femoral cutting jig. Stiven SPRING secured the cutting jig with 2 pins. I held retractors in position while Stiven SPRING performed the distal femoral resection through the guide area we now removed her distal femoral cutting guide. We now placed our 4-in-1 femoral cutting block and positioned and it was secured with 2 pins by Stiven SPRING while I held the block in position. The distal femoral finishing was now completed. A proximal tibial cutting guide was positioned. I held the guide in the appropriate position with both hands while Stiven SPRING inserted stabilizing pins into the guide. Proximal tibial cut was made. We now placed a trial femoral component into position, along with an appropriate size tibial tray and insert. We now took the knee through range of motion and had full extension good flexion and good overall soft tissue balance noted. The patella was everted and stabilized with 2 towel clips held by Stiven SPRING while I performed a flush with patellar quad tendon utilizing a fresh sawblade. We templated the patella, appropriate drill holes were made. An appropriate trial patella was positioned, knee was taken through full range of motion with the patella tracking very nicely. The trial patella was removed. Drill holes were made through the femoral component. All trial components were removed after marking off the appropriate rotation of the tibia. Retractors were now positioned along the proximal tibia. An appropriate keel punch was made with the appropriate size tibial guide by myself on Stiven SPRING assisted by holding retractors. At this point appropriate size implants were chosen and opened. The joint was irrigated copiously with pulse lavage mechanical irrigation. The wound was irrigated with pulse lavage mechanical irrigation. We mixed antibiotic methylmethacrylate. We placed the knee into flexion. We placed multiple retractors assisted by Xu SPRING to expose the proximal tibia. Once the methyl methacrylate was ready, the tibial component was cemented into place removing any excess methylmethacrylate form by both myself and Stiven SPRING. The femoral component was cemented into place removing the removing any excess methylmethacrylate performed by both myself and Stiven SPRING. We then inserted the appropriate size polyethylene tibial insert. We made sure that it was locked into position. We took the knee into full extension, and then back in a flexion making sure we had removed any excess methylmethacrylate. The patellar component was then cemented down and secured with clamp. Excess methylmethacrylate removed. We kept the knee in full extension, patellar clamp in position until methylmethacrylate had hardened. Once it had hardened the patellar clamp was removed. The knee was taken through full range of motion. The patella tracked nicely. There was good soft tissue balancing. The tourniquet was now released. Additional hemostasis was achieved via electrocautery. A second gram of TXA was given. The wound again was irrigated with pulse lavage mechanical irrigation. The extensor mechanism was repaired with Ethibond suture. We checked the repair with range of motion and it was stable. The subcutaneous soft tissues were repaired with Vicryl in layers. The skin was approximated with pernio/Dermabond. Sterile dressings were applied followed by loose web roll and Lonnie bandage. The patient was transferred to a bed, and taken to recovery in stable and satisfactory condition. Stiven SPRING assisted with this complex procedure.
[2022-04-13] MEDS: HYDROmorphone 0.5 MG/0.5 ML SYRINGE IVP PRN ×4 (09:50→10:23)
[2022-04-13 09:58] VITALS: TEMP 97.3
--- NOTE | 2022-04-13 10:11 | XR ---
EXAMINATION TYPE: XR knee limited LT DATE OF EXAM: 04/13/2022 COMPARISON: NONE TECHNIQUE: Two views submitted HISTORY: Post op FINDINGS: There is a prosthetic knee in near anatomic alignment. There is soft tissue edema and emphysema. IMPRESSION: 1. Postoperative change. Appears in near-anatomic alignment
[2022-04-13] MEDS: LACTATED RINGERS 1,000 ML IV SCH ×2 (10:14→10:54)
[2022-04-13] MEDS ORDERED: TAMSULOSIN 0.4 MG CAP.ER.24H PO STA (12:43)
[2022-04-13 13:12] VITALS: BP 136/85; PULSE 99; RESP 20
== END 2022-04-13 15:03 | disposition home health service (06) ==
LOC: OR 05:54
PROVIDERS: ATTEND Orthopaedic Surgery
DX: M17.12 Unilateral primary osteoarthritis, left knee (principal); E78.5 Hyperlipidemia, unspecified; K21.9 Gastro-esophageal reflux disease without esophagitis; K52.9 Noninfective gastroenteritis and colitis, unspecified; G89.18 Other acute postprocedural pain; Z98.890 Other specified postprocedural states; Z79.899 Other long term (current) drug therapy
CPT/HCPCS: 27447; 64448; 64999; 76942; 97110; 97161; 88300; 73560; C1776; C1713 ×2; C1751; J2250; J0330; J1100; J2710; J0690 ×2; J2405; J3010; J1170 ×2; J2795 ×2; J2704; J2001

== ENCOUNTER → 2022-05-14 | Outpatient (CLI) | payer BC ==
--- NOTE | 2022-05-14 14:28 | US ---
EXAMINATION TYPE: US venous doppler duplex LE LT DATE OF EXAM: 05/14/2022 12:24 PM COMPARISON: NONE CLINICAL HISTORY: 62-year-old male M79.662, R22.42 PAIN AND SWELLING LT LOWER LIMB. No hx of DVT. Pat ient is on aspirin. Left knee replacement 04/13/2022. Left leg pain. SIDE PERFORMED: Left TECHNIQUE: The lower extremity deep venous system is examined utilizing real time linear array sonog joey with graded compression, doppler sonography and color-flow sonography. I needs: VESSELS IMAGED: Common Femoral Vein Deep Femoral Vein Greater Saphenous Vein * Femoral Vein Popliteal Vein Small Saphenous Vein * Proximal Calf Veins (* superficial vessels) Left Leg: No evidence of DVT in veins imaged. IMPRESSION: No evidence for DVT within the left lower extremity imaged from the groin to the calf.
== END | disposition home or self-care (01) ==
LOC: RADUSWWP 11:42
PROVIDERS: ATTEND Orthopaedic Surgery
DX: R22.42 Localized swelling, mass and lump, left lower limb (principal); M79.662 Pain in left lower leg; Z79.82 Long term (current) use of aspirin

== ENCOUNTER 2022-12-01 10:06 | Day surgery (SDC) | payer BC ==
[2022-11-26 08:52] VITALS: BMI 29.4
[~2022-12-01 10:06] MED LIST changes: -ACETAMINOPHEN TAB 500 MG TAB PO PRN; +LIDOCAINE 1% (10MG/ML) FOR IV START INTRADERMA PRN; -MELOXICAM 7.5 MG TAB PO PRN; -TRANEXAMIC ACID IN NACL,ISO-OS 1,000 MG in SALINE 1 100ML.BAG IVPB PRN
[2022-12-01 11:15] VITALS: RESP 16; TEMP 97.9
[2022-12-01] MEDS: LACTATED RINGERS 1,000 ML IV SCH ×2 (11:23→12:17)
[2022-12-01] MEDS ORDERED: PROPOFOL 10 MG/ML 20 ML VIAL IV ONE (12:19)
--- NOTE | 2022-12-01 12:29 | P.PCN ---
Date of Procedure: 12/01/22 Procedure(s) Performed: BRIEF HISTORY: Patient is a 62-year-old pleasant white male scheduled for an elective colonoscopy as a part of surveillance of long-standing history of Crohn's colitis diagnosed 15 years ago. He remains in clinical remission.. PROCEDURE PERFORMED: Colonoscopy with random biopsies. PREOPERATIVE DIAGNOSIS: History of Crohn's colitis. IV sedation per Anesthesia. PROCEDURE: After informed consent was obtained, the patient, was brought into the endoscopy unit. IV sedation was administered by Anesthesia under continuous monitoring. Digital rectal examination was normal. Initially the Olympus CF-160 flexible video colonoscope was then inserted in the rectum, gradually advanced into the cecum without any difficulty. Careful examination was performed as the scope was gradually being withdrawn. Ileocecal valve and the appendiceal orifice were visualized and appeared normal. Prep was excellent. Mucosa of the cecum, ascending colon, transverse colon, descending colon, sigmoid colon, and rectum appeared normal. Random biopsies were done from cecum to rectum at every 10 cm into well. Retroflexion was performed in the rectum and small internal hemorrhoids were seen. The patient tolerated the procedure well. IMPRESSION: Normal-appearing colon from rectum to cecum with no evidence of active colitis or colorectal neoplasia. Small internal hemorrhoids RECOMMENDATIONS: Findings of this examination were discussed with the patient as well as his family. He was advised to follow with the biopsy results.. The biopsy does not show any evidence of dysplasia, he can have a repeat colonoscopy in years.
[2022-12-01 13:13] VITALS: BP 112/85; PULSE 70
== END 2022-12-01 13:14 | disposition home or self-care (01) ==
LOC: ORWHC2ENDO 10:06
PROVIDERS: ATTEND Internal Medicine Gastroenterology
DX: K50.10 Crohn's disease of large intestine without complications (principal); K64.8 Other hemorrhoids; I10 Essential (primary) hypertension; E78.5 Hyperlipidemia, unspecified; Z87.891 Personal history of nicotine dependence; Z88.2 Allergy status to sulfonamides; Z98.890 Other specified postprocedural states; Z79.899 Other long term (current) drug therapy
CPT/HCPCS: 88305; 45380; J2704

== ENCOUNTER → 2023-04-01 | Outpatient (CLI) | payer BC ==
[2023-04-01 16:32] LABS: Basophils # (A) 0.04 X 10*3/uL (0.00-0.10); Basophils % (A) 0.9 %; Eosinophils # (A) 0.24 X 10*3/uL (0.04-0.35); Eosinophils % (A) 5.1 %; HCT 46.6 % (39.6-50.0); HGB 15.3 g/dL (13.0-17.0); Lymphocytes # (A) 1.11 X 10*3/uL (0.90-5.00); Lymphocytes % (A) 23.6 %; MCH 30.5 pg (27.0-32.0); MCHC 32.8 g/dL (32.0-37.0); Mean Platelet Volume 9.4 FL (9.5-12.2); Monocytes # (A) 0.28 X 10*3/uL (0.20-1.00); NRBC Per 100 WBC 0 X 10*3/uL (0.00-0.01); Neutrophils # (A) 3.01 X 10*3/uL (1.80-7.70); Platelet Count 277 X 10*3/uL (140-440); RBC 5.01 X 10*6/uL (4.40-5.60); RDW 12.8 % (11.5-14.5)
[2023-04-01 16:52] LABS: ALT 36 U/L (10-49); AST 25 U/L (14-35); Albumin 4.5 g/dL (3.8-4.9); Albumin/Globulin Ratio 2.05 Ratio (1.60-3.17); Alkaline Phosphatase 75 U/L (41-126); Calcium 9.8 mg/dL (8.7-10.3); Carbon Dioxide 26.3 mmol/L (21.6-31.8); Chloride 108 mmol/L (96-109); Chol/HDL Ratio 2.35 Ratio; Globulin 2.2 g/dL (1.6-3.3); Glucose 109 mg/dL (70-110); LDL Cholesterol,Calculated 102.2 mg/dL (0.0-131.0); Potassium 5.1 mmol/L (3.5-5.5); Prostate Specific Antigen 1.55 ng/mL (0.000-4.500); Sodium 145 mmol/L (135-145); T4, Free (Free Thyroxine) 0.96 ng/dL (0.80-1.80); Total Bilirubin 0.3 mg/dL (0.3-1.2); Total Protein 6.7 g/dL (6.2-8.2); VLDL Calculation 9.82 mg/dL (5.00-40.00)
== END | disposition home or self-care (01) ==
LOC: LABWHC1 09:13
PROVIDERS: ATTEND Internal Medicine
DX: E78.5 Hyperlipidemia, unspecified (principal)
CPT/HCPCS: 36415; 80053; 80061; 84153; 84439; 84443; 85025

== ENCOUNTER → 2023-10-20 | Outpatient (CLI) | payer BC ==
--- NOTE | 2023-10-21 05:17 | MR ---
EXAMINATION TYPE: MR shoulder RT wo con DATE OF EXAM: 10/20/2023 COMPARISON: Prior MRI right shoulder October 12, 2013. Prior outside bilateral shoulder x-ray October 07. HISTORY: Right shoulder pain, Hx Rt rotator repair with 5 anchors TECHNIQUE: Multiplanar, multisequence imaging of the right shoulder is performed without contrast. FINDINGS: Rotator Cuff: Increased signal in the infraspinatus tendon more prominent versus prior MRI with adjac ent free fluid inferiorly. Full-thickness retracted tear of the supraspinatus tendon with stump retra ction to level of the acromion measuring near 3.5 cm. Heterogeneous subscapularis tendon. Mild atroph y of supraspinatus and infraspinatus muscle bulk with more moderate atrophy of the teres minor and mu scle bulk Acromioclavicular Joint: Interval surgery with more widened appearance from prior MRI. Glenohumeral Joint: Moderate size joint effusion more prominent versus prior. More prominent narrowin g is seen. No significant spurring. There is new Susceptibility artifact from prior rotator cuff tend on repair surgery. Labrum: There is new tear of the superior labrum. Biceps Tendon: The long head of biceps is in normal location within bicipital groove. Bone marrow signal: Heterogeneous increased T2 signal at site of rotator cuff surgery anterior superi or humeral head. Other: No additional significant abnormality is appreciated. IMPRESSION: 1. Recurrent full-thickness retracted tear of the supraspinatus tendon. 2. More prominent tendinosis/partial tearing of the infraspinatus tendon. 3. New superior labral tear. 4. Moderate size glenohumeral joint effusion more prominent versus prior.
== END | disposition home or self-care (01) ==
LOC: RADMRIMAIN 20:15
PROVIDERS: ATTEND Orthopaedic Surgery
DX: M75.121 Complete rotator cuff tear or rupture of right shoulder, not specified as traumatic (principal); M67.813 Other specified disorders of tendon, right shoulder

== ENCOUNTER → 2023-11-15 | Outpatient (CLI) | payer BC ==
[2023-11-15 19:18] LABS: Basophils # (A) 0.04 X 10*3/uL (0.00-0.10); Basophils % (A) 0.8 %; Eosinophils # (A) 0.24 X 10*3/uL (0.04-0.35); Eosinophils % (A) 5.1 %; HCT 43.2 % (39.6-50.0); HGB 13.9 g/dL (13.0-17.0); Lymphocytes # (A) 0.97 X 10*3/uL (0.90-5.00); Lymphocytes % (A) 20.4 %; MCHC 32.2 g/dL (32.0-37.0); MCV 93.3 FL (80.0-97.0); Mean Platelet Volume 9.6 FL (9.5-12.2); Monocytes % (A) 6.3 %; NRBC Per 100 WBC 0 X 10*3/uL (0.00-0.01); Neutrophils # (A) 3.19 X 10*3/uL (1.80-7.70); Neutrophils % (A) 67.2 %; Platelet Count 228 X 10*3/uL (140-440); RBC 4.63 X 10*6/uL (4.40-5.60); RDW 12.7 % (11.5-14.5); WBC 4.75 X 10*3/uL (4.50-10.00)
[2023-11-15 19:46] LABS: Anion Gap 10.2 mmol/L (4.00-12.00); Carbon Dioxide 26.8 mmol/L (21.6-31.8); Potassium 4.9 mmol/L (3.5-5.5)
== END | disposition home or self-care (01) ==
LOC: LABPAT 12:01
PROVIDERS: ATTEND Orthopaedic Surgery
DX: Z01.818 Encounter for other preprocedural examination (principal); M75.41 Impingement syndrome of right shoulder
CPT/HCPCS: 36415; 80051; 85025; 93005

== ENCOUNTER 2023-11-18 08:10 | Day surgery (SDC) | payer BC ==
[2023-11-16 12:26] VITALS: BMI 29.5
--- NOTE | 2023-11-17 13:28 | HP ---
HISTORY AND PHYSICAL DATE OF SCHEDULED SURGERY: 11/18/2023. HISTORY OF PRESENT ILLNESS: Roc Bird is a 63-year-old gentleman seen with a right shoulder pain consistent with a large retracted rotator cuff tendon tear. We discussed options. He elected to proceed with right shoulder arthroscopy. Consent obtained. PAST MEDICAL HISTORY: Gastroesophageal reflux disease, colitis. SURGICAL HISTORY: Appendectomy, vasectomy, knee arthroscopy. DAILY MEDICATIONS: 1. Omeprazole. 2. Vitamins. 3. Celebrex. 4. Tramadol. 5. Crestor. ALLERGIES: None. SOCIAL HISTORY: Denies current tobacco use. PHYSICAL EVALUATION OF RIGHT SHOULDER: Flexion 70 degrees. Abduction is 40 degrees. External rotation is 20 degrees with weakness. He has tenderness along the anterolateral acromion at rotator cuff insertion site. Impingement is positive at 90 degrees. Drop-arm sign is positive. Distal neurovascular exam is intact. RADIOGRAPHS: Right shoulder revealed a type 2 acromion, cystic changes of the tuberosity. MRI right shoulder revealed a large retracted rotator cuff tendon tear along with labral tear. IMPRESSION: 1. Right shoulder impingement with rotator cuff tear. 2. Right shoulder labral tear. 3. Hyperlipidemia. PLAN: Right shoulder arthroscopy with subacromial decompression, arthroscopic rotator cuff repair, and debridement of labral tear. MMODL / IJN: [id number] /
[2023-11-18] MEDS ORDERED: MIDAZOLAM 2 MG/2 ML VIAL IV PRN (08:44)
[2023-11-18] MEDS ORDERED: HYDROmorphone 0.5 MG/0.5 ML SYRINGE IVP PRN (08:44)
[2023-11-18] MEDS ORDERED: fentaNYL (PF) 50 MCG/ML 2 ML AMP IVP PRN (08:44)
[2023-11-18] MEDS: IV FLUID CONTINUATION 1,000 ML IV ONE (09:05)
[2023-11-18] MEDS: LACTATED RINGERS 1,000 ML IV SCH (09:06)
[2023-11-18] MEDS: LIDOCAINE 1% (10MG/ML) FOR IV START INTRADERMA PRN (09:06)
[2023-11-18 09:08] VITALS: TEMP 97.1
[2023-11-18] MEDS: ONDANSETRON 4 MG/2 ML VIAL IVP ONE (09:11)
[2023-11-18] MEDS: DEXAMETHASONE SOD PHOSPHATE 4 MG/ML 1 ML VIAL IV ONE (09:11)
[2023-11-18] MEDS: MIDAZOLAM 2 MG/2 ML VIAL IVP ONE (09:22)
[2023-11-18] MEDS ORDERED: PROPOFOL 10 MG/ML 20 ML VIAL IV ONE (09:47)
[2023-11-18] MEDS ORDERED: DEXAMETHASONE SOD PHOSPHATE 4 MG/ML 1 ML VIAL ONE (09:47)
[2023-11-18] MEDS ORDERED: MIDAZOLAM 2 MG/2 ML VIAL ONE (09:47)
[2023-11-18] MEDS ORDERED: LIDOCAINE 1% INJ 10MG/ML (20 ML MDV) ONE (09:47)
[2023-11-18] MEDS ORDERED: SUCCINYLCHOLINE CHLORIDE 200 MG/10 ML VIAL IV ONE (09:47)
[2023-11-18] MEDS ORDERED: ROPIVACAINE 5 MG/ML 30 ML VIAL ONE (09:47)
[2023-11-18] MEDS ORDERED: fentaNYL (PF) 50 MCG/ML 2 ML AMP ONE (09:47)
--- NOTE | 2023-11-18 11:47 | P.OP ---
Date of Procedure: 11/18/23 Preoperative Diagnosis: Right shoulder rotator cuff tear Postoperative Diagnosis: 1. Right shoulder rotator cuff tear 2. Right shoulder impingement 3. Right shoulder partial long head biceps tendon tear Procedure(s) Performed: 1. Right shoulder arthroscopic rotator cuff repair 2. Right shoulder arthroscopic subacromial decompression 3. Right shoulder arthroscopic biceps tenotomy Implants: 2Arthrex 4.75 swivel lock anchors 2Arthrex 5.5 swivel lock anchors Anesthesia: GETA, regional (Interscalene block) Surgeon: José Luis Saucedo [employer] Machine Operator #1: Dominick Motta Estimated Blood Loss (ml): 9 Pathology: none sent Condition: stable Disposition: PACU Indications for Procedure: 63-year-old patient seen with progressive right shoulder pain. After having treatment options discussed, he elected to proceed with arthroscopy. Operative Findings: See description of procedure Description of Procedure: Patient underwent an interscalene block by department of anesthesia. The patient was then taken to the operative suite. The patient underwent a general anesthetic by the department of anesthesia. The patient was placed into a lateral position and secured. There was appropriate padding of the bony prominence. Right shoulder was then prepped and draped in normal sterile orthopedic fashion. We placed the extremity in 10 pounds of longitudinal traction. A posterior incision was now made for a posterior working portal site. The trocar and cannula were inserted into the glenohumeral joint. Arthroscopy was initiated. Spinal needle was now inserted anteriorly, to ascertain the anterior working portal site. An incision was now made in that area, a trocar was inserted followed by a probe. There was significant partial tearing long head biceps tendon. A lot of the labrum was absent. There were grade I/II chondromalacia changes glenohumeral joint without tears. I performed arthroscopic biceps tenotomy. Instruments removed from the glenohumeral joint. Utilizing the posterior working portal site, the trocar and cannula were inserted into the subacromial space. Arthroscopy initiated. I made an incision 2 fingerbreadths lateral to the acromion. I introduced my trocar followed by my ArthroCare ablator. I now began ablating thick subacromial bursal tissue, which exposed the undersurface of the anterior acromion. There was diminished subacromial space. A motorized bur was introduced and a subacromial decompression was performed. I also excised some osteophytes off the inferior aspect of the distal clavicle. The AC joint was visualized and noted to be stable with reasonable joint space. I turned my attention to the rotator cuff. There was a large retracted tear measuring approximately 3.5 centimeters. It was retracted about 3 cm centrally.. I debrided the margins getting down to stable tendon tissue. I now pulled on the tendon I was able to pull it over the footprint. I did debride out some residual suture material I encountered as his gentleman had previous rotator cuff tendon repair. I introduced my motorized bur and abraded the footprint area, getting some petechial bleeding. I now made an accessory portal site off the lateral aspect of the acromion. I punched to holes medial for medial row fixation with the assistance of Xu SPRING carefully tapping the punch with a mallet as I held the punch and the camera. I now introduced both anchors into the pre-punched holes and Xu [employer]ING tapped them with the mallet as I held anchors and the camera. Xu [employer]ING now screwed the anchors in place a while I held the anchor guide and camera. All 8 limbs of suture were now passed through good bites of rotator cuff tendon. I now punched 2 holes for lateral row fixation again I held the punch and camera while Xu [employer]ING used a mallet to tap in the punch. We now passed sutures through both anchors and individually I introduced the anchors into the pre- punch holes I held the anchor guide in position with one hand holding the camera with the other hand while Xu [employer]ING tensioned the sutures and screwed in the anchors one at a time. All residual suture limbs were now clipped. We had good compression of the tendon along the entire footprint. Instruments now removed from the portal sites. All portal sites were approximated with nylon suture. Sterile dressings were applied followed by a shoulder immobilizer. Dominick SPRING assisted in this complex case. The patient was awakened, transferred to a bed, and taken to recovery in stable condition.
[2023-11-18] MEDS: HYDROcodone/APAP 7.5-325MG 1 EACH TAB PO ONE (12:42)
[2023-11-18 13:31] VITALS: BP 138/86; PULSE 78; RESP 18
--- NOTE | 2023-11-18 20:47 | P.ANPRN ---
Procedure Note - Anesthesia - Nerve Block Performed Left Interscalene Single Time Out Performed: Yes Date of Procedure: 11/18/23 Procedure Start Time: Procedure Stop Time: Location of Patient: PreOp Indication: Acute Post-Operative Pain, Requested by Surgeon Sedation Type: Sedate with meaningful contact maintained Preparation: Sterile Prep Position: Supine Needle Types: Pajunk Needle Gauge: 21 Ultrasound used to visualize needle placement: Yes Ultrasound used to observe medication spread: Yes Blood Aspirated: No Pain Paresthesia on Injection Noted: No Resistance on Injection: Normal Image Stored and Saved: Yes Events: Uneventful and Well Tolerated (Ropivacaine 0.5% 20 cc plus dexamethasone 4 mg)
== END 2023-11-18 13:35 | disposition home or self-care (01) ==
LOC: OR 08:10
PROVIDERS: ATTEND Orthopaedic Surgery
DX: S46.111A Strain of muscle, fascia and tendon of long head of biceps, right arm, initial encounter (principal); S43.491A Other sprain of right shoulder joint, initial encounter; M75.101 Unspecified rotator cuff tear or rupture of right shoulder, not specified as traumatic; M75.41 Impingement syndrome of right shoulder; E78.5 Hyperlipidemia, unspecified; G89.18 Other acute postprocedural pain; K21.9 Gastro-esophageal reflux disease without esophagitis; Z90.49 Acquired absence of other specified parts of digestive tract; Z79.899 Other long term (current) drug therapy; X58.XXXA Exposure to other specified factors, initial encounter
CPT/HCPCS: 64415; 29826; 29828; 29827; C1713 ×3; J2250; J0330; J1100; J0690; J2405; J2001; J3010; J2795; J2704

== ENCOUNTER → 2023-12-21 | Outpatient (CLI) | payer BC ==
--- NOTE | 2023-12-22 07:59 | XR ---
EXAMINATION TYPE: XR shoulder complete RT DATE OF EXAM: 12/21/2023 CLINICAL HISTORY: pain TECHNIQUE: 2 views of the right shoulder are obtained. COMPARISON: None FINDINGS: There is no acute fracture/dislocation evident. The acromioclavicular and glenohumeral elvira int spaces appear within normal limits. The visualized ribs are intact and unremarkable. IMPRESSION: 1. There is no acute fracture or dislocation. ICD 10 NO FRACTURE, INITIAL EVALUATION
== END | disposition home or self-care (01) ==
LOC: RADXRMAIN 16:04
PROVIDERS: ATTEND Physician Assistant
DX: M25.511 Pain in right shoulder (principal)

== ENCOUNTER → 2024-04-05 | Outpatient (CLI) | payer BC ==
[2024-04-05 10:19] LABS: Basophils # (A) 0.03 X 10*3/uL (0.00-0.10); Basophils % (A) 0.6 %; Eosinophils # (A) 0.53 X 10*3/uL (0.04-0.35); Eosinophils % (A) 10.9 %; HCT 40.3 % (39.6-50.0); HGB 13.6 g/dL (13.0-17.0); Lymphocytes # (A) 1.34 X 10*3/uL (0.90-5.00); Lymphocytes % (A) 27.5 %; MCH 30.5 pg (27.0-32.0); MCHC 33.7 g/dL (32.0-37.0); MCV 90.4 FL (80.0-97.0); Mean Platelet Volume 9.5 FL (9.5-12.2); Monocytes # (A) 0.41 X 10*3/uL (0.20-1.00); Monocytes % (A) 8.4 %; NRBC Per 100 WBC 0 X 10*3/uL (0.00-0.01); Neutrophils # (A) 2.56 X 10*3/uL (1.80-7.70); Neutrophils % (A) 52.4 %; Platelet Count 235 X 10*3/uL (140-440); RBC 4.46 X 10*6/uL (4.40-5.60); RDW 12.6 % (11.5-14.5); WBC 4.88 X 10*3/uL (4.50-10.00)
[2024-04-05 11:57] LABS: Chol/HDL Ratio 2.66 Ratio; VLDL Calculation 14.54 mg/dL (5.00-40.00)
[2024-04-05 11:58] LABS: ALT 23 U/L (10-49); AST 26 U/L (14-35); Albumin 4.2 g/dL (3.8-4.9); Alkaline Phosphatase 70 U/L (41-126); BUN/Creat Ratio 19.29 Ratio (12.00-20.00); Blood Urea Nitrogen 13.5 mg/dL (9.0-27.0); Calcium 9.7 mg/dL (8.7-10.3); Chloride 109 mmol/L (96-109); Globulin 2.1 g/dL (1.6-3.3); Glucose 106 mg/dL (70-110); LDL Cholesterol,Calculated 98.5 mg/dL (0.0-131.0); Potassium 5.2 mmol/L (3.5-5.5); Prostate Specific Antigen 0.61 ng/mL (0.000-4.500); Sodium 143 mmol/L (135-145); T4, Free (Free Thyroxine) 0.95 ng/dL (0.80-1.80); Total Bilirubin 0.5 mg/dL (0.3-1.2); Total Protein 6.3 g/dL (6.2-8.2)
== END | disposition home or self-care (01) ==
LOC: LABWHC1 07:34
PROVIDERS: ATTEND Internal Medicine
DX: I10 Essential (primary) hypertension (principal); E78.5 Hyperlipidemia, unspecified
CPT/HCPCS: 36415; 80053; 80061; 83036; 84153; 84403; 84439; 84443; 85025

== ENCOUNTER → 2024-12-08 | Outpatient (CLI) | payer MEDICARE, BC ==
--- NOTE | 2024-12-09 19:53 | MR ---
MR shoulder LT wo con DATE OF EXAM: 12/08/2024 9:02 PM COMPARISON: Left shoulder radiographs 11/01/2024. CLINICAL INDICATION: Male, 64 years old with history of M25.512 PAIN IN LEFT SHOULDER; PHH, Left shou lder extreme pain x4-5 years TECHNIQUE: Noncontrast multiplanar, multiecho imaging of the left shoulder was performed, including T 1-weighted and fluid sensitive sequences. FINDINGS: Rotator cuff: Supraspinatus and infraspinatus: High-grade partial/near full-thickness fullwidth tear of the articul ar supraspinatus between the critical zone and footplate. A few bursal surface fibers are felt to be intact. No tendinous retraction. Punctate mineralizations of the supraspinatus at the insertion are b laine appreciated radiographically, compatible with consistent tendinosis. Intact infraspinatus with tendinosis. Subscapularis: High-grade partial/near full-thickness tear of the superior subscapularis tendon, with out appreciable retraction. Tendinosis. Teres minor: Intact. Cuff muscles: Symmetric bulk and signal intensity. Acromioclavicular joint: Mild arthrosis and capsular hypertrophy. SA-SD bursa: Mild bursal fluid, most prominently to the anterior deltoid. Additional prominent subcor acoid bursal distention. Long head biceps tendon: Perched on the lesser tuberosity. Intra-articular tendinosis. Rotator Interval: Markedly edematous with complete effacement of the fat. Axillary pouch: Attenuation of signal of the humeral attachment, , nonspecific and potentially on a d egenerative basis considering lack of other findings. No significant adjacent edema or distention by joint fluid. Labrum: Diminutive with marked degeneration, no discrete displaced tear. [place] complex is suggested with prominence of the MGHL and diminutive appearance of the anterior superior labrum. Cartilage: Surface irregularity without focal full-thickness defect. Marrow: No acute fracture or marrow replacing process. Subcortical cystic change in the lesser tubero sity and posterolateral corner of the humeral head. Other soft tissues: No joint effusion. No suspicious axillary adenopathy. IMPRESSION: 1. High-grade/near full-thickness tear of the articular supraspinatus. Additional calcific tendiniti s better appreciated radiographically. 2. High-grade/near full-thickness tear of the superior subscapularis findings suggestive of biceps i nstability. 3. Subdeltoid and subcoracoid bursitis. [facility], Workstation: [id number] [id number], 12/09/2024 7:50 PM
== END | disposition home or self-care (01) ==
LOC: RADMRIMAIN 20:15
PROVIDERS: ATTEND Orthopaedic Surgery
DX: M75.112 Incomplete rotator cuff tear or rupture of left shoulder, not specified as traumatic (principal); M75.52 Bursitis of left shoulder; M75.32 Calcific tendinitis of left shoulder